=== PATIENT | male | born 1930 | race Caucasian/White ===

== ENCOUNTER 2019-12-04 12:23 | Inpatient (IN) | payer MEDICARE ==
--- NOTE | 2019-12-04 13:06 | ED ---
General Adult HPI - General Chief complaint: Shortness of Breath Stated complaint: SOB Time Seen by Provider: 12/04/19 12:45 Source: patient, family, RN notes reviewed Mode of arrival: wheelchair Limitations: no limitations - History of Present Illness Initial comments: Patient is a pleasant 89-year-old male presenting to the emergency Department with complaints of shortness of breath. Onset of symptoms was 2 days ago. Patient started with nausea vomiting and diarrhea 2 days ago, approximate 5 or 6 episodes of each. Patient has been having source of breath since that time, somewhat waxing and waning. Patient originally denies any chest discomfort at all. Patient later admits that he did have some indigestion in his chest most the day yesterday. Patient denies any discomfort at all today. Patient still feels somewhat short of breath. Patient has been fatigued and generally weak. No isolated area of weakness or confusion. Nausea has resolved. - Related Data Allergies Allergy/AdvReac Type Severity Reaction Status Date / Time No Known Allergies Allergy Verified 12/04/19 12:31 Review of Systems ROS Statement: Those systems with pertinent positive or pertinent negative responses have been documented in the HPI. ROS Other: All systems not noted in ROS Statement are negative. Constitutional: Denies: fever Eyes: Denies: eye pain ENT: Denies: ear pain Respiratory: Reports: cough (Minimal cough), dyspnea Cardiovascular: Reports: as per HPI Endocrine: Reports: fatigue Gastrointestinal: Reports: as per HPI. Denies: abdominal pain Genitourinary: Denies: dysuria Musculoskeletal: Denies: back pain Skin: Denies: rash Neurological: Reports: as per HPI. Denies: headache, confusion Past Medical History Past Medical History: Diabetes Mellitus, Hyperlipidemia History of Any Multi-Drug Resistant Organisms: None Reported Past Surgical History: No Surgical Hx Reported Past Psychological History: No Psychological Hx Reported Smoking Status: Never smoker Past Alcohol Use History: None Reported Past Drug Use History: None Reported General Exam Limitations: no limitations General appearance: alert, in no apparent distress Head exam: Present: normocephalic Eye exam: Present: normal appearance Neck exam: Present: normal inspection Respiratory exam: Present: respiratory distress, decreased breath sounds (Mild bilateral) Cardiovascular Exam: Present: regular rate, normal rhythm Expanded Peripheral pulses: 2+: Radial (R), Radial (L), Posterior Tibialis (R), Posterior Tibialis (L), Dorsalis Pedis (R), Dorsalis Pedis (L) GI/Abdominal exam: Present: soft. Absent: tenderness Extremities exam: Present: normal inspection. Absent: pedal edema, calf tenderness Neurological exam: Present: alert Psychiatric exam: Present: normal affect, normal mood Skin exam: Present: normal color Course Vital Signs 12/04/19 12/04/19 12/04/19 12:25 13:05 13:30 Temperature 97.5 F L Pulse Rate 66 62 65 Respiratory 20 18 18 Rate Blood Pressure 109/54 114/74 105/92 O2 Sat by Pulse 95 94 L 97 Oximetry - Reevaluation(s) Reevaluation #1: 12/04/19 13:[address] Stubbs including presentation and EKG. He is in the hospital and will come evaluate. EKG #2 shows sinus rhythm at 61. First-degree AV block NH 2:30. QRS 76. QT 412. QTC 414. Normal axis. Low risk voltage. Inferior ST elevation. ST depression V1 through V4. 12/04/19 13:29 Patient was seen by Dr. Stubbs with plans to take her to the Ultrasound Coordinator. He did call STEMI alert. 12/04/19 13:35 case also discussed with Dr. Duggan, who will admit covered for Dr. garsia. EKG Findings - EKG Comments: EKG Findings:: Sinus rhythm 62. For screening AV block with NH of 256. QRS 78. QT 408. QTC 414. Normal axis. Low QRS voltage. ST elevation inferior. ST depression leads V1 through V4. Medical Decision Making - Lab Data Result diagrams: 12/04/19 13:07 Lab Results 12/04/19 12/04/19 Range/Units 13:07 13:07 WBC 22.8 H (3.8-10.6) k/uL RBC 5.11 (4.30-5.90) m/uL Hgb 17.0 (13.0-17.5) gm/dL Hct 52.7 (39.0-53.0) % MCV 103.1 H (80.0-100.0) fL MCH 33.2 (25.0-35.0) pg MCHC 32.3 (31.0-37.0) g/dL RDW 13.0 (11.5-15.5) % Plt Count 226 (150-450) k/uL Neutrophils % 85 % Lymphocytes % 6 % Monocytes % 8 % Eosinophils % 0 % Basophils % 0 % Neutrophils # 19.4 H (1.3-7.7) k/uL Lymphocytes # 1.4 (1.0-4.8) k/uL Monocytes # 1.8 H (0-1.0) k/uL Eosinophils # 0.1 (0-0.7) k/uL Basophils # 0.0 (0-0.2) k/uL Hypochromasia Slight Macrocytosis Slight Plasma Lactic Acid Brett 11.5 H* (0.7-2.0) mmol/L - Radiology Data Radiology results: image reviewed (Chest x-ray concerning for CHF) Critical Care Time Critical Care Time: Yes Total Critical Care Time: 31 Disposition Clinical Impression: Congestive heart failure, STEMI (ST elevation myocardial infarction) Disposition: ADMITTED IP TO THIS [facility] Condition: Critical Is patient prescribed a controlled substance at d/c from ED?: No Referrals: Dipika Silverman MD [Primary Care Provider] - 1-2 days Decision Time: 13:35
[2019-12-04] MEDS ORDERED: ASPIRIN 81 MG PO STA (13:10)
[2019-12-04 13:15] LABS: Basophils % (A) 0 %; Eosinophils # (A) 0.1 k/uL (0-0.7); Eosinophils % (A) 0 %; HCT 52.7 % (39.0-53.0); Hypochromasia Slight; Lymphocytes # (A) 1.4 k/uL (1.0-4.8); Lymphocytes % (A) 6 %; MCH 33.2 pg (25.0-35.0); MCHC 32.3 g/dL (31.0-37.0); MCV 103.1 fL (80.0-100.0); Macrocytosis Slight; Mean Platelet Volume 9.1; Monocytes # (A) 1.8 k/uL (0-1.0); Monocytes % (A) 8 %; Neutrophils # (A) 19.4 k/uL (1.3-7.7); Neutrophils % (A) 85 %; Platelet Count 226 k/uL (150-450); RBC 5.11 m/uL (4.30-5.90); WBC 22.8 k/uL (3.8-10.6)
[2019-12-04] MEDS ORDERED: HEPARIN SODIUM,PORCINE 5,000 UNIT/ML 1 ML VIAL IV STA (13:20)
[2019-12-04] MEDS ORDERED: ATORVASTATIN 80 MG TAB PO STA (13:20)
[2019-12-04 13:23] LABS: Albumin 4.5 g/dL (3.5-5.0); Calcium 9.9 mg/dL (8.4-10.2); Total Bilirubin 2.3 mg/dL (0.2-1.3); Total Protein 7.5 g/dL (6.3-8.2)
[2019-12-04 13:33] LABS: INR 1.1 (<1.2); Prothrombin Time 11.3 sec (9.0-12.0)
--- NOTE | 2019-12-04 13:33 | XR ---
EXAMINATION TYPE: XR chest 1V portable DATE OF EXAM: 12/04/2019 HISTORY: Dyspnea. REFERENCE: NONE. FINDINGS: Heart size upper limits of normal. There is mild vascular congestion and pulmonary edema. I cannot exclude small effusions. IMPRESSION: FINDINGS MOST CONSISTENT WITH CONGESTIVE HEART FAILURE.
[2019-12-04] MEDS ORDERED: HEPARIN SODIUM,PORCINE 5,000 UNIT/ML 1 ML VIAL IV PRN (13:35)
[2019-12-04] MEDS ORDERED: NITROGLYCERIN SL TABS 0.4 MG TAB SUBLINGUAL PRN ×2 (13:35→15:14)
[2019-12-04 13:36] LABS: D-Dimer 0.86 mg/L FEU (<0.60)
[2019-12-04] MEDS ORDERED: LIDOCAINE 1% INJ 10MG/ML (20 ML MDV) ONE (13:54)
[2019-12-04] MEDS ORDERED: SODIUM CHLORIDE 0.9% 1,000 ML IV ONE (14:00)
[2019-12-04] MEDS ORDERED: HEPARIN SOD,PORK IN 0.45% NACL 25,000 UNIT in 0.45% NACL 1 250ML.BAG IV SCH (14:00)
[2019-12-04] MEDS ORDERED: SODIUM CHLORIDE 0.9% 500 ML 500 ML IV ONE ×2 (14:00→15:08)
[2019-12-04] MEDS ORDERED: LIDOCAINE 1% INJ 10MG/ML (20 ML MDV) SQ ONE (14:06)
[2019-12-04] MEDS ORDERED: BIVALIRUDIN BOLUS 250 MG/50 ML IV ONE (14:30)
[2019-12-04] MEDS ORDERED: FUROSEMIDE 10 MG/ML 4 ML VIAL ONE (14:31)
[2019-12-04] MEDS ORDERED: CLOPIDOGREL 75 MG TAB ONE (14:34)
[2019-12-04] MEDS ORDERED: MORPHINE SULFATE 4 MG/ML SYRINGE ONE (14:34)
[2019-12-04] MEDS ORDERED: MORPHINE SULFATE 4 MG/ML SYRINGE IV ONE (14:37)
[2019-12-04] MEDS ORDERED: BIVALIRUDIN 250 MG in SODIUM CHLORIDE 0.9% 50 ML IV ONE (14:38)
[2019-12-04] MEDS ORDERED: niCARdipine 25 MG/10 ML VIAL ONE (14:40)
[2019-12-04] MEDS ORDERED: CLOPIDOGREL 75 MG TAB PO ONE (14:43)
[2019-12-04] MEDS ORDERED: FUROSEMIDE 10 MG/ML 4 ML VIAL IV ONE (14:45)
--- NOTE | 2019-12-04 14:52 | P.CRDCN ---
History of Present Illness History of present illness: This is Dr. Stubbs dictating a consult on this patient The patient was interviewed and examined IMPRESSION / ASSESSMENT: Acute inferior posterior SD ST elevation, symptoms began evening presented with nausea vomiting and diarrhea initially 2 days of symptoms Recently diagnosed with diabetes History of dyslipidemia PLAN: Discussed with the patient discussed with the daughter Risk of cardio catheterization at this age with a large inferior posterior SD discussed in addition stroke was discussed Likely triple-vessel coronary artery disease, intervention only on the culprit vessel as indicated HPI Called by Dr. Jarrett for this elderly gentleman presenting with upper abdominal symptoms with an ST elevation in the inferior leads [place] [address]. when I received a call and went down to the ER to see the patient 1 his twelve-lead ECG showed sinus mechanism in the 60s with ST elevation in the inferior posterior leads he seemed fairly comfortable at rest. He categorically denied any chest discomfort any nausea and I saw him However his daughter stated that she brought him in today and ultimately forced him to come in because she found him a short of breath Patient started experiencing nausea and diarrhea on . On Friday he was feeling short of breath. His daughter literally forced to come to the hospital today because she found him short of breath I saw him in the ER he did not complain of any discomfort in the chest However the daughter told me that on Friday he was complaining of midsternal chest discomfort going up into the jaw and the neck No labs available initially He said he was recently started on metformin by his primary care physician Blood pressure was in the normal range pulse rate in the 60s afebrile respirations 16-18 he did not appear to be any respiratory distress I called Dr. Chong at 1:12 PM regarding this patient STEMI alert at 1:18 PM, Dr. Chong notified of activation of STEMI team Twelve-lead ECG showed ST elevation in the inferior leads and ST depression in V1 and V2 and V3 consistent with a large inferior posterior SD Later, labs showed sodium 132 potassium 5.0 creatinine 2.54, glucose 602 lactic acid 11.5 CPK greater than 4000 Troponin 122 NT proBNP 12,700 White count elevated ROS: No fever chills or rigors, no cough, phlegm or expectoration, no nausea, vomiting or diarrhea, no hematuria, dysuria, no musculoskeletal complaints, no strokes or seizures, no skin lesions. EXAMINATION: Afebrile and 7.5, pulse rate in the 60s, blood pressure 109/54 oxygen saturation 95% on room air Best sounds but reduced bilaterally but no rhonchi no crackles Does not appear visibly short of breath, not using accessory muscles Heart sounds S1 and S2 are normal no murmurs no rub Abdomen soft Extremity warm REVIEW OF LABS, ECG & MEDICAL DATA Labs as above Past Medical History Past Medical History: Diabetes Mellitus, Hyperlipidemia History of Any Multi-Drug Resistant Organisms: None Reported Past Surgical History: No Surgical Hx Reported Past Psychological History: No Psychological Hx Reported Smoking Status: Never smoker Past Alcohol Use History: None Reported Past Drug Use History: None Reported Medications and Allergies Home Medications Medication Instructions Recorded Confirmed Type Simvastatin [Zocor] 20 mg PO HS 12/04/19 12/04/19 History metFORMIN HCL [Glucophage] 500 mg PO DAILY 12/04/19 12/04/19 History Allergies Allergy/AdvReac Type Severity Reaction Status Date / Time No Known Allergies Allergy Verified 12/04/19 13:38 Physical Exam Vitals: Vital Signs Temp Pulse Resp BP Pulse Ox 12/04/19 13:40 61 20 120/92 92 L 12/04/19 13:30 65 18 105/92 97 12/04/19 13:05 62 18 114/74 94 L 12/04/19 12:25 97.5 F L 66 20 109/54 95 Intake and Output 12/03/19 12/04/19 12/04/19 22:59 06:59 14:59 Other: Weight 74.843 kg Results 12/04/19 13:07 12/04/19 13:07 Cardiac Enzymes 12/04/19 12/04/19 Range/Units 13:07 13:07 AST 742 H (17-59) U/L Troponin I 122.000 H* (0.000-0.034) ng/mL Coagulation 12/04/19 Range/Units 13:07 PT 11.3 (9.0-12.0) sec APTT 24.0 (22.0-30.0) sec CBC 12/04/19 Range/Units 13:07 WBC 22.8 H (3.8-10.6) k/uL RBC 5.11 (4.30-5.90) m/uL Hgb 17.0 (13.0-17.5) gm/dL Hct 52.7 (39.0-53.0) % Plt Count 226 (150-450) k/uL Comprehensive Metabolic Panel 12/04/19 Range/Units 13:07 Sodium 132 L (137-145) mmol/L Potassium 5.0 (3.5-5.1) mmol/L Chloride 92 L (98-107) mmol/L Carbon Dioxide 18 L (22-30) mmol/L BUN 53 H (9-20) mg/dL Creatinine 2.54 H (0.66-1.25) mg/dL Glucose 602 H* (74-99) mg/dL Calcium 9.9 (8.4-10.2) mg/dL AST 742 H (17-59) U/L ALT 83 H (4-49) U/L Alkaline Phosphatase 90 (38-126) U/L Total Protein 7.5 (6.3-8.2) g/dL Albumin 4.5 (3.5-5.0) g/dL Current Medications Generic Name Dose Route Start Last Admin Trade Name Freq PRN Reason Stop Dose Admin Aspirin 325 mg 12/05/19 09:00 Aspirin PO DAILY [facility] Heparin Sodium (Porcine) 0 unit 12/04/19 13:35 Heparin IV Q6HR PRN Low PTT Protocol Heparin Sodium/Sodium Chloride 250 mls @ 8.981 mls/hr 12/04/19 14:00 25,000 unit/ Sodium Chloride IV .Q24H [facility] Protocol 12 UNITS/KG/HR Nitroglycerin 0.4 mg 12/04/19 13:35 Nitrostat SUBLINGUAL Q5M PRN Chest Pain Sodium Chloride 10 ml 12/04/19 21:00 Saline Flush IV BID [facility] Intake and Output 12/03/19 12/04/19 12/04/19 22:59 06:59 14:59 Other: Weight 74.843 kg Patient Weight 12/05/19 06:59 Weight 74.843 kg 12/04/19 13:07 12/04/19 13:07
[2019-12-04] MEDS ORDERED: NITROGLYCERIN 1000MCG/10ML SYRINGE INTRACORON ONE (15:02)
[2019-12-04] MEDS ORDERED: niCARdipine Syringe (1,000 mcg/10 mL) INTRACORON ONE (15:02)
[2019-12-04] MEDS ORDERED: RX INFO: IV CONTRAST WAS GIVEN 1 EACH MISC MISCELLANE PRN (15:14)
[2019-12-04] MEDS ORDERED: ATROPINE SULFATE 0.1 MG/ML 10ML SYRINGE IV PRN (15:14)
[2019-12-04] MEDS ORDERED: ZOLPIDEM 5 MG TAB PO PRN (15:14)
[2019-12-04] MEDS ORDERED: MAG HYDROX/AL HYDROX/SIMETH 30 ML CUP PO PRN (15:14)
[2019-12-04] MEDS ORDERED: SODIUM CHLORIDE 0.9% 1,000 ML IV SCH (15:15)
[2019-12-04 15:41] LABS: Glucose,Whole Blood 499 mg/dL (75-99)
[2019-12-04 16:37] LABS: Appearance,Urine Cloudy (Clear); Bilirubin,Urine Negative (Negative); Blood,Urine Negative (Negative); Color,Urine Yellow; Glucose,Urine (UA) 4+ (Negative); Hyaline Casts,Urine 85 /lpf (0-2); Ketones,Urine 1+ (Negative); Leukocyte Esterase,Urine Negative (Negative); Mucus,Urine Rare /hpf; Nitrite,Urine Negative (Negative); Protein,Urine Trace (Negative); RBC,Urine 1 /hpf (0-5); Specific Gravity,Urine 1.023 (1.001-1.035); Squamous Epithelial Cell,Urine 1 /hpf (0-4); Urobilinogen,Urine <2.0 mg/dL (<2.0); WBC,Urine 3 /hpf (0-5)
[2019-12-04] MEDS: METOPROLOL TARTRATE 12.5 MG TAB PO SCH ×2 (17:19→22:01)
[2019-12-04] MEDS ORDERED: INSULIN REGULAR BOLUS (FROM DRIP BAG) IV PRN (17:23)
[2019-12-04] MEDS ORDERED: INSULIN REGULAR 100 UNIT in SODIUM CHLORIDE 0.9% 100 ML IV SCH (17:30)
--- NOTE | 2019-12-04 17:53 | CC ---
CARDIAC CATHETERIZATION REPORT DATE OF SERVICE: 12/04/2019 PERFORMING PHYSICIAN: Stephen Acevedo MD. PROCEDURE PERFORMED: 1. Selective right and left coronary angiogram. 2. Left heart catheterization. 3. Balloon angioplasty of the first obtuse marginal branch of the left circumflex. 4. Balloon angioplasty of the PDA branch of the left circumflex. 5. Aspiration thrombectomy from the left circumflex. INDICATION: This is an 89-year-old gentleman with diabetes who presented to the hospital with chest discomfort. An EKG was performed and revealed acute inferior ST-elevation myocardial infarction. The patient was seen by Dr. Stubbs who advised proceeding with an emergent heart catheterization and possible percutaneous coronary intervention. APPROACH: Right common femoral artery. COMPLICATION: None. LEVEL OF SEDATION: Moderate with sedation length of 1 hour. Door to balloon was 2 hours and 10 minutes. Please note that when the patient arrived to the packing house laborer and getting ready to proceed with a heart catheterization it already passed 90 minutes. AMOUNT OF CONTRAST USED: We used a total of 50 mL of IV contrast. PROCEDURE DESCRIPTION: After obtaining informed consent, the patient was brought to the cardiac packing house laborer. The right common femoral artery was cannulated using micropuncture technique, the micropuncture wire passed easily then I placed a 6-Welsh sheath at the right common femoral artery. After that I did selective right and left coronary angiogram using JR4 and JL4 catheters. Left heart catheterization was performed using JR4 catheter which crossed the aortic valve then I did pullback across the valve. After that I did intervene on the left circumflex coronary artery. Please see a separate paragraph for that. SELECTIVE CORONARY ANGIOGRAM: 1. The right coronary artery is a large caliber vessel. The RCA is 100% occluded in the proximal to midportion. 2. The left main is calcified with mild disease only. It bifurcates into LCX and LAD. 3. The LCX is a large caliber vessel and codominant vessel. The LCA is extremely calcified and occluded right at the ostium from the left main coronary artery. 4. The LAD is extremely calcified as well. The proximal LAD appeared to have a focal tight lesion, appeared to be in the range of 90%. Then the mid LAD has another lesion appeared to be ulcerated in the range of 80% to 90%. as well. The LAD distally appeared to have mild disease only. HEMODYNAMICS: The LVEDP was 24 mmHg without significant gradient across the aortic valve. PCI OF THE LEFT CIRCUMFLEX: Anticoagulation was initiated using Angiomax. Subsequently,I did engage the left main using JL4 guiding catheter. I did wire the left circumflex and the wire after that advanced to the first obtuse marginal branch of the left circumflex and that wire was a whisper wire. After that I did PTCA ballooning of the OM1 as well as proximal left circumflex using 2 0 mm balloon and then 3 0 mm balloon. Also, there was a lesion in the midportion right at the ostial of OM1 from the left circumflex which the balloon did not cross but I was able to balloon it using 1.5 mm balloon. An angiogram was taken right after the ballooning and revealed that the left circumflex was full of thrombus. Attempting aspiration thrombectomy was performed as well and we were unable to aspirate any clot from the left circumflex. Also, by the angiogram we noticed that there is a big PDA branch of the left circumflex coming so I left the wire in OM1 and I wired the PDA branch of the left circumflex. I did balloon angioplasty of the PDA as well using 2.0 x 12 mm balloon. The following angiogram showed sluggish flow in both the PDA as well as the OM of the left circumflex. Because the patient was asymptomatic at the end of the procedure and because of the maximum amount of contrast we used and we were not quite sure if the inferolateral wall of the left circumflex was viable, we decided to stop. Also, the left circumflex was full of clot and a clot involving both the OM1 as well as PDA of the left circumflex. CONCLUSION: 1. Acute inferior ST-elevation myocardial infarction in this 89-year-old gentleman with underlying diabetes. 2. Extremely calcified right and left coronary systems. 3. Severe triple-vessel coronary artery disease. 4. 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 5. Subacute total occlusion of the left circumflex with a large thrombus burden involving the OM as well as PDA of the left circumflex. 6. Critical disease involving the proximal and mid left anterior descending artery. 7. Balloon angioplasty of the left circumflex, OM1, and PDA performed with sluggish flow by the end and the balloon angioplasty was performed with adjunctive use of aspiration thrombectomy. 8. Please note that the time the patient arrived at the packing house laborer to start the heart catheterization it already passed 90 minutes. POSTPROCEDURE MANAGEMENT: 1. Dual anti-platelet therapy. 2. Aggressive cholesterol control. 3. Hold any beta live at this point in view of the bradycardia and first-degree AV block. 4. High-intensity statin. 5. An echocardiogram with Doppler. MMODL / IJN: [id number] /
[2019-12-04 18:06] LABS: Glucose,Whole Blood 499 mg/dL (75-99)
[2019-12-04 18:30] LABS: Glucose,Whole Blood 501 mg/dL (75-99)
[2019-12-04 19:08] LABS: Glucose,Whole Blood 446 mg/dL (75-99)
[2019-12-04 21:41] LABS: Glucose,Whole Blood 289 mg/dL (75-99)
[2019-12-04] MEDS: ATORVASTATIN 80 MG TAB PO SCH (22:01)
[2019-12-04 22:45] LABS: Glucose,Whole Blood 240 mg/dL (75-99)
[2019-12-04 23:43] LABS: Glucose,Whole Blood 186 mg/dL (75-99)
[2019-12-05 01:02] LABS: Glucose,Whole Blood 148 mg/dL (75-99)
[2019-12-05 01:47] LABS: Glucose,Whole Blood 133 mg/dL (75-99)
[2019-12-05 02:52] LABS: Glucose,Whole Blood 113 mg/dL (75-99)
[2019-12-05 03:54] LABS: Glucose,Whole Blood 135 mg/dL (75-99)
[2019-12-05 04:53] LABS: Glucose,Whole Blood 130 mg/dL (75-99)
[2019-12-05 05:50] LABS: Basophils # (A) 0.1 k/uL (0-0.2); Basophils % (A) 0 %; Eosinophils % (A) 0 %; HCT 49.6 % (39.0-53.0); HGB 16.5 gm/dL (13.0-17.5); Lymphocytes # (A) 1.4 k/uL (1.0-4.8); Lymphocytes % (A) 6 %; MCH 33.5 pg (25.0-35.0); MCHC 33.3 g/dL (31.0-37.0); MCV 100.4 fL (80.0-100.0); Mean Platelet Volume 8.7; Monocytes # (A) 1.5 k/uL (0-1.0); Monocytes % (A) 7 %; Neutrophils # (A) 19.4 k/uL (1.3-7.7); Neutrophils % (A) 86 %; Platelet Count 142 k/uL (150-450); RBC 4.94 m/uL (4.30-5.90); RDW 13.1 % (11.5-15.5); WBC 22.6 k/uL (3.8-10.6)
[2019-12-05 05:50] LABS: Glucose,Whole Blood 131 mg/dL (75-99)
[2019-12-05 05:57] LABS: Albumin 3.9 g/dL (3.5-5.0); Calcium 9.4 mg/dL (8.4-10.2); Potassium 4.5 mmol/L (3.5-5.1); Total Protein 6.9 g/dL (6.3-8.2)
[2019-12-05 07:00] LABS: Glucose,Whole Blood 123 mg/dL (75-99)
--- NOTE | 2019-12-05 07:04 | XR ---
EXAMINATION TYPE: XR chest 1V portable DATE OF EXAM: 12/05/2019 HISTORY: CHF. REFERENCE: Previous study dated 12/04/2019. FINDINGS: Pulmonary vasculature has improved. There is worsening bibasilar airspace disease. The hear t is mildly enlarged. I suspect small effusions. IMPRESSION: 1. IMPROVEMENT IN THE AMOUNT OF PULMONARY CONGESTION. 2. WORSENING BIBASILAR AIRSPACE DISEASE WITH SMALL CONCOMITANT EFFUSIONS.
[2019-12-05 08:21] LABS: Glucose,Whole Blood 124 mg/dL (75-99)
[2019-12-05] MEDS: CLOPIDOGREL 75 MG TAB PO SCH (08:35)
[2019-12-05] MEDS: METOPROLOL TARTRATE 12.5 MG TAB PO SCH ×2 (08:36→20:39)
[2019-12-05] MEDS: ENOXAPARIN 30 MG/0.3 ML SYRINGE SQ SCH (08:36)
[2019-12-05] MEDS: PANTOPRAZOLE 40 MG TABLET PO SCH (08:37)
[2019-12-05] MEDS ORDERED: ASPIRIN 325 MG TAB PO SCH ×2 (09:00)
[2019-12-05] MEDS ORDERED: FUROSEMIDE 10 MG/ML 4 ML VIAL IV STA (09:21)
[2019-12-05 09:23] LABS: Glucose,Whole Blood 110 mg/dL (75-99)
[2019-12-05 09:55] LABS: Glucose,Whole Blood 146 mg/dL (75-99)
[2019-12-05 11:53] LABS: Glucose,Whole Blood 208 mg/dL (75-99)
[2019-12-05] MEDS: INSULIN ASPART (NovoLOG) 100 UNIT/ML VIAL SQ SCH ×3 (12:26→20:46)
--- NOTE | 2019-12-05 13:32 | P.CNPUL ---
History of Present Illness Consult date: 12/05/19 Requesting physician: Priscilla Duggan Reason for consult: obstructive sleep apnea, other (Acute inferior wall myocardial infarction status post angioplasty.) Chief complaint: Shortness of breath History of present illness: This is an 89-year-old white male brought into the emergency room yesterday with 2 days history of shortness of breath, nausea vomiting, diarrhea. Patient was also complaining of waxing and waning shortness of breath but he had no clear- cut history of chest discomfort. But admitted to some indigestion in the chest yesterday. He also felt weak and fatigued. EKG in the ER showed evidence of inferior ST elevation and ST depression in V1 through V4. Patient was seen by c ardiology and he was felt to have acute ST elevation myocardial infarction. Patient was recently diagnosed with diabetes and history of dyslipidemia. According to his daughter, patient did complain of midsternal chest discomfort going up to the jaw and the neck area on Friday. At any rate ST elevation myocardial infarction alert was called in at 1:18 PM, and Dr. Chong was notified, STEMI team was activated. Cardiac catheterization was performed and he underwent balloon angioplasty of the first obtuse marginal branch of the left circumflex balloon angioplasty of the PDA branch of the left circumflex and aspiration thrombectomy from the left circumflex. 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 There was also critical disease involving the proximal and mid LAD. Patient was transferred to the ICU, he was placed on dual antiplatelet therapy, and recommended high-intensity stat his chest x-ray on admission clearly showed evidence of pulmonary edema, chest x-ray today showed improvement in his pulmonary edema but not completely resolved. Patient has been on 10 L high flow nasal cannula, and he is down to 6 now O2 saturations 96%. After evaluating the patient, I recommended more diuretics. He was given Lasix 40 mg IV push 1. BNP level was noted to be elevated at 11,000. Pro-calcitonin level is pending. And his liver enzymes were noted to be elevated including AST of 780 ALT of 106 and alkaline phosphatase of 69. CPK on admission was over 4006 and a troponin over 180,000. Review of Systems Constitutional: Weakness and fatigue HEENT: Negative Pulmonary: As noted in HPI. Cardiac: As noted in HPI. GI: Nausea vomiting and diarrhea. Musculoskeletal: Negative Skin: Negative Urologic: Negative Endocrine: Recently diagnosed with diabetes and started on metformin. Neurologic: Negative Hematologic: Negative Psychiatric: Negative Past Medical History Past Medical History: Diabetes Mellitus, Hyperlipidemia, Myocardial Infarction (DC) Last Myocardial Infarction Date:: 12/04/2019 History of Any Multi-Drug Resistant Organisms: None Reported Past Surgical History: Heart Catheterization Additional Past Surgical History / Comment(s): 12/04/19 - Circ ballooned Smoking Status: Never smoker Medications and Allergies Home Medications Medication Instructions Recorded Confirmed Type Simvastatin [Zocor] 20 mg PO HS 12/04/19 12/04/19 History metFORMIN HCL [Glucophage] 500 mg PO DAILY 12/04/19 12/04/19 History Allergies Allergy/AdvReac Type Severity Reaction Status Date / Time No Known Allergies Allergy Verified 12/04/19 13:38 Physical Exam Vitals: Vital Signs Temp Pulse Resp BP Pulse Ox 12/05/19 12:00 98.5 F 101 H 25 H 83/56 93 L 12/05/19 11:00 104 H 28 H 81/56 92 L 12/05/19 10:00 93 28 H 89/62 91 L 12/05/19 09:00 99 23 100/73 12/05/19 08:00 97.5 F L 108 H 25 H 102/75 94 L 12/05/19 07:00 111 H 20 107/76 96 12/05/19 06:00 106 H 16 98/72 95 12/05/19 05:00 107 H 14 108/77 97 12/05/19 04:00 97.6 F 110 H 18 115/77 97 12/05/19 03:00 101 H 20 108/75 95 12/05/19 02:00 104 H 20 115/79 94 L 12/05/19 01:00 101 H 18 124/83 96 12/05/19 00:00 97.6 F 99 20 112/81 95 12/04/19 23:00 97 16 114/78 96 12/04/19 22:00 100 18 112/84 95 12/04/19 21:00 101 H 18 112/80 96 12/04/19 20:00 97.6 F 88 20 111/79 96 12/04/19 19:00 100 22 107/79 94 L 12/04/19 18:30 112 H 28 H 116/83 95 12/04/19 18:15 114 H 27 H 118/82 94 L 12/04/19 18:00 110 H 30 H 122/79 94 L 12/04/19 17:45 114 H 30 H 134/102 94 L 12/04/19 17:30 112 H 29 H 125/82 94 L 12/04/19 17:15 112 H 30 H 125/82 95 12/04/19 17:00 113 H 32 H 111/76 95 12/04/19 16:45 104 H 24 111/76 93 L 12/04/19 16:30 116 H 0 L 106/82 93 L 12/04/19 16:05 92 L 12/04/19 16:00 97.6 F 117 H 22 131/92 87 L 12/04/19 13:40 61 20 120/92 92 L 12/04/19 13:30 65 18 105/92 97 Intake and Output 12/04/19 12/05/19 12/05/19 22:59 06:59 14:59 Intake Total 639.876 627.649 203.475 Output Total 450 370 205 Balance 189.876 257.649 -1.525 Intake: IV 50 Intake, IV Titration 589.876 627.649 203.475 Amount Insulin Regular 100 unit 64.876 27.649 8.475 In Sodium Chloride 0.9% 100 ml @ Per Protocol IV .Q0M [facility] Rx#:[id number] Sodium Chloride 0.9% 1, 525 600 195 000 ml @ 75 mls/hr IV . [id number] [facility] Rx#:[id number] Output: Urine 450 370 205 Other: Voiding Method Indwelling Catheter Indwelling Catheter Indwelling Catheter Weight 74.843 kg 76.9 kg 76.9 kg Physical Exam: Revealed an 89-year-old white male in no distress. Head: Atraumatic, normocephalic. HEENT:[Neck is supple.] [No neck masses.] [No thyromegaly.] [No JVD.] PERRLA, EOMI, no icterus. Chest: [Symmetrical chest expansion, crackles at the bases especially at the right base. No chest wall tenderness. No rhonchi no wheezes.] Cardiac Exam: [Normal S1 and S2, no S3 gallop, no murmur.] Abdomen: [Soft, nontender, no megaly, no rebound, no guarding, normal bowel sounds.] Extremities: [No clubbing, no edema, no cyanosis.] Neurological Exam: [No focal neurologic deficit.] Alert and oriented 3. Psychiatric: Normal mood affect and normal mental status examination. Skin: No rashes. Results - Laboratory Findings CBC and BMP: 12/05/19 05:19 12/05/19 05:19 PT/INR, D-dimer PT 11.3 sec (9.0-12.0) 12/04/19 13:07 INR 1.1 (<1.2) 12/04/19 13:07 D-Dimer 0.86 mg/L FEU (<0.60) H 12/04/19 13:07 Abnormal lab findings: Abnormal Labs 12/04/19 12/04/19 12/04/19 13:07 13:07 13:07 WBC 22.8 H MCV 103.1 H Plt Count Neutrophils # 19.4 H Monocytes # 1.8 H D-Dimer 0.86 H Sodium 132 L Chloride 92 L Carbon Dioxide 18 L BUN 53 H Creatinine 2.54 H Glucose 602 H* POC Glucose (mg/dL) Plasma Lactic Acid Brett Total Bilirubin 2.3 H AST 742 H ALT 83 H Creatine Kinase 4375 H* Troponin I Urine Protein Urine Glucose (UA) Urine Ketones Hyaline Casts Urine Mucus 12/04/19 12/04/19 12/04/19 13:07 13:07 15:39 WBC MCV Plt Count Neutrophils # Monocytes # D-Dimer Sodium Chloride Carbon Dioxide BUN Creatinine Glucose POC Glucose (mg/dL) 499 H Plasma Lactic Acid Brett 11.5 H* Total Bilirubin AST ALT Creatine Kinase Troponin I 122.000 H* Urine Protein Urine Glucose (UA) Urine Ketones Hyaline Casts Urine Mucus 12/04/19 12/04/19 12/04/19 16:07 16:07 16:20 WBC MCV Plt Count Neutrophils # Monocytes # D-Dimer Sodium Chloride Carbon Dioxide BUN Creatinine Glucose POC Glucose (mg/dL) Plasma Lactic Acid Brett 8.2 H* Total Bilirubin AST ALT Creatine Kinase Troponin I 149.000 H* Urine Protein Trace H Urine Glucose (UA) 4+ H Urine Ketones 1+ H Hyaline Casts 85 H Urine Mucus Rare H 12/04/19 12/04/19 12/04/19 18:05 18:29 19:06 WBC MCV Plt Count Neutrophils # Monocytes # D-Dimer Sodium Chloride Carbon Dioxide BUN Creatinine Glucose POC Glucose (mg/dL) 499 H 501 H 446 H Plasma Lactic Acid Brett Total Bilirubin AST ALT Creatine Kinase Troponin I Urine Protein Urine Glucose (UA) Urine Ketones Hyaline Casts Urine Mucus 12/04/19 12/04/19 12/04/19 19:49 19:49 21:38 WBC MCV Plt Count Neutrophils # Monocytes # D-Dimer Sodium Chloride Carbon Dioxide BUN Creatinine Glucose POC Glucose (mg/dL) 289 H Plasma Lactic Acid Brett 6.2 H* Total Bilirubin AST ALT Creatine Kinase Troponin I 180.000 H* Urine Protein Urine Glucose (UA) Urine Ketones Hyaline Casts Urine Mucus 12/04/19 12/04/19 12/04/19 22:43 23:10 23:40 WBC MCV Plt Count Neutrophils # Monocytes # D-Dimer Sodium Chloride Carbon Dioxide BUN Creatinine Glucose POC Glucose (mg/dL) 240 H 186 H Plasma Lactic Acid Brett 5.6 H* Total Bilirubin AST ALT Creatine Kinase Troponin I Urine Protein Urine Glucose (UA) Urine Ketones Hyaline Casts Urine Mucus 12/05/19 12/05/19 12/05/19 01:00 01:45 02:35 WBC MCV Plt Count Neutrophils # Monocytes # D-Dimer Sodium Chloride Carbon Dioxide BUN Creatinine Glucose POC Glucose (mg/dL) 148 H 133 H Plasma Lactic Acid Brett 4.5 H* Total Bilirubin AST ALT Creatine Kinase Troponin I Urine Protein Urine Glucose (UA) Urine Ketones Hyaline Casts Urine Mucus 12/05/19 12/05/19 12/05/19 02:50 03:48 04:52 WBC MCV Plt Count Neutrophils # Monocytes # D-Dimer Sodium Chloride Carbon Dioxide BUN Creatinine Glucose POC Glucose (mg/dL) 113 H 135 H 130 H Plasma Lactic Acid Brett Total Bilirubin AST ALT Creatine Kinase Troponin I Urine Protein Urine Glucose (UA) Urine Ketones Hyaline Casts Urine Mucus 12/05/19 12/05/19 12/05/19 05:19 05:19 05:19 WBC 22.6 H MCV 100.4 H Plt Count 142 L Neutrophils # 19.4 H Monocytes # 1.5 H D-Dimer Sodium Chloride Carbon Dioxide BUN 65 H Creatinine 1.73 H Glucose 143 H POC Glucose (mg/dL) Plasma Lactic Acid Brett 4.1 H* Total Bilirubin 2.0 H AST 780 H ALT 106 H Creatine Kinase Troponin I Urine Protein Urine Glucose (UA) Urine Ketones Hyaline Casts Urine Mucus 12/05/19 12/05/19 12/05/19 05:47 06:57 08:11 WBC MCV Plt Count Neutrophils # Monocytes # D-Dimer Sodium Chloride Carbon Dioxide BUN Creatinine Glucose POC Glucose (mg/dL) 131 H 123 H Plasma Lactic Acid Brett 2.5 H* Total Bilirubin AST ALT Creatine Kinase Troponin I Urine Protein Urine Glucose (UA) Urine Ketones Hyaline Casts Urine Mucus 12/05/19 12/05/19 12/05/19 08:16 09:22 09:53 WBC MCV Plt Count Neutrophils # Monocytes # D-Dimer Sodium Chloride Carbon Dioxide BUN Creatinine Glucose POC Glucose (mg/dL) 124 H 110 H 146 H Plasma Lactic Acid Brett Total Bilirubin AST ALT Creatine Kinase Troponin I Urine Protein Urine Glucose (UA) Urine Ketones Hyaline Casts Urine Mucus 12/05/19 12/05/19 11:51 12:23 WBC MCV Plt Count Neutrophils # Monocytes # D-Dimer Sodium Chloride Carbon Dioxide BUN Creatinine Glucose POC Glucose (mg/dL) 208 H Plasma Lactic Acid Brett 2.4 H* Total Bilirubin AST ALT Creatine Kinase Troponin I Urine Protein Urine Glucose (UA) Urine Ketones Hyaline Casts Urine Mucus - Diagnostic Findings Chest x-ray: image reviewed (Pulmonary edema, improving based on chest x-ray today,) Assessment and Plan Assessment: Impression: Acute hypoxic respiratory failure secondary to pulmonary edema secondary to acute ST elevation myocardial infarction. Suspect systolic congestive heart failure echocardiogram is pending. Acute inferior wall ST elevation myocardial infarction. Status post cardiac catheterization and angioplasty as noted in HPI. Type 2 diabetes. Recently diagnosed and started on metformin. Recommendation: Continue present treatment plan as outlined by cardiology. Continue to monitor in the ICU and titrate FiO2 accordingly maintain O2 sat uration above 90%. Diuretics to be given and I have written for Lasix 40 mg IV push 1. Daily chest x-ray while in the ICU. Dual antiplatelet therapy. Atorvastatin. GI prophylaxis. We'll continue to follow. Time with Patient: Greater than 30
--- NOTE | 2019-12-05 13:50 | P.PN ---
Subjective Patient presented with an inferior posterior MS His symptoms were GI His history was very confusing If it hadn't been for his daughter he would have never accepted that he actually had chest discomfort radiating up into the neck His symptoms began on and he had a delayed presentation In the ER clinically he looked remarkably comfortable and is chatting away. His labs yesterday told different story He underwent coronary angiography and he has severe triple-vessel CAD The culprit vessel was obviously the proximal circumflex vessel was heavily calcified and finally Dr. Acevedo was only able to 80 plasty this without any stenting and establish some reasonable flow It was a high-risk procedure His LV function on fluoroscopic evaluation of the LV was significantly reduced His blood pressure ranges from 85 200 mmHg systolic respirations in the 20s he is tachycardic, sinus tachycardia afebrile Breath sounds are reduced bilaterally Heart sounds S1 and S2 are soft there's no murmurs he is tachycardic Extremities warm no edema Abdomen soft Labs have improved Sodium 140, potassium 4.5, BUN 65 creatinine 1.73 which is better than before Glucose 143 Lactate has improved CPK greater than 4000 Troponin 180 NT proBNP 11,000 Impression Status post inferoposterior MS in line likely severe LV dysfunction Cardiac shock but looks remarkably good resting very comfortably and completely asymptomatic Suggest Gradually maximize beta blockers and heart failure medications Continue dual antiplatelet therapy and statins 2-D echo and Doppler study tomorrow Objective - Vital Signs Vital signs: Vital Signs Temp 98.5 F 12/05/19 12:00 Pulse 101 H 12/05/19 12:00 Resp 25 H 12/05/19 12:00 BP 83/56 12/05/19 12:00 Pulse Ox 93 L 12/05/19 12:00 Intake & Output 12/04/19 12/05/19 12/05/19 18:59 06:59 18:59 Intake Total 749.354 987.071 203.475 Output Total 225 595 205 Balance 524.354 392.071 -1.525 Weight 74.843 kg 76.9 kg 76.9 kg Intake: IV 518.9 Intake, IV Titration 230.454 987.071 203.475 Amount Insulin Regular 100 unit 5.454 87.071 8.475 In Sodium Chloride 0.9% 100 ml @ Per Protocol IV .Q0M [facility] Rx#:[id number] Sodium Chloride 0.9% 1, 225 900 195 000 ml @ 75 mls/hr IV . [id number] [facility] [place] Rx#:[id number] Output: Urine 225 595 205 Other: Voiding Method Indwelling Catheter Indwelling Catheter Indwelling Catheter ABP, PAP, CO, CI - Last Documented Arterial Blood Pressure 139/80 - Labs CBC & Chem 7: 12/05/19 05:19 12/05/19 05:19 Labs: Abnormal Lab Results - Last 24 Hours (Table) 12/04/19 12/04/19 12/04/19 Range/Units 13:07 13:07 15:39 WBC (3.8-10.6) k/uL MCV (80.0-100.0) fL Plt Count (150-450) k/uL Neutrophils # (1.3-7.7) k/uL Monocytes # (0-1.0) k/uL BUN (9-20) mg/dL Creatinine (0.66-1.25) mg/dL Glucose (74-99) mg/dL POC Glucose (mg/dL) 499 H (75-99) mg/dL Plasma Lactic Acid Brett (0.7-2.0) mmol/L Total Bilirubin (0.2-1.3) mg/dL AST (17-59) U/L ALT (4-49) U/L Creatine Kinase 4375 H* (55-170) U/L Troponin I 122.000 H* (0.000-0.034) ng/mL Urine Protein (Negative) Urine Glucose (UA) (Negative) Urine Ketones (Negative) Hyaline Casts (0-2) /lpf Urine Mucus (None) /hpf 12/04/19 12/04/19 12/04/19 Range/Units 16:07 16:07 16:20 WBC (3.8-10.6) k/uL MCV (80.0-100.0) fL Plt Count (150-450) k/uL Neutrophils # (1.3-7.7) k/uL Monocytes # (0-1.0) k/uL BUN (9-20) mg/dL Creatinine (0.66-1.25) mg/dL Glucose (74-99) mg/dL POC Glucose (mg/dL) (75-99) mg/dL Plasma Lactic Acid Brett 8.2 H* (0.7-2.0) mmol/L Total Bilirubin (0.2-1.3) mg/dL AST (17-59) U/L ALT (4-49) U/L Creatine Kinase (55-170) U/L Troponin I 149.000 H* (0.000-0.034) ng/mL Urine Protein Trace H (Negative) Urine Glucose (UA) 4+ H (Negative) Urine Ketones 1+ H (Negative) Hyaline Casts 85 H (0-2) /lpf Urine Mucus Rare H (None) /hpf 12/04/19 12/04/19 12/04/19 Range/Units 18:05 18:29 19:06 WBC (3.8-10.6) k/uL MCV (80.0-100.0) fL Plt Count (150-450) k/uL Neutrophils # (1.3-7.7) k/uL Monocytes # (0-1.0) k/uL BUN (9-20) mg/dL Creatinine (0.66-1.25) mg/dL Glucose (74-99) mg/dL POC Glucose (mg/dL) 499 H 501 H 446 H (75-99) mg/dL Plasma Lactic Acid Brett (0.7-2.0) mmol/L Total Bilirubin (0.2-1.3) mg/dL AST (17-59) U/L ALT (4-49) U/L Creatine Kinase (55-170) U/L Troponin I (0.000-0.034) ng/mL Urine Protein (Negative) Urine Glucose (UA) (Negative) Urine Ketones (Negative) Hyaline Casts (0-2) /lpf Urine Mucus (None) /hpf 12/04/19 12/04/19 12/04/19 Range/Units 19:49 19:49 21:38 WBC (3.8-10.6) k/uL MCV (80.0-100.0) fL Plt Count (150-450) k/uL Neutrophils # (1.3-7.7) k/uL Monocytes # (0-1.0) k/uL BUN (9-20) mg/dL Creatinine (0.66-1.25) mg/dL Glucose (74-99) mg/dL POC Glucose (mg/dL) 289 H (75-99) mg/dL Plasma Lactic Acid Brett 6.2 H* (0.7-2.0) mmol/L Total Bilirubin (0.2-1.3) mg/dL AST (17-59) U/L ALT (4-49) U/L Creatine Kinase (55-170) U/L Troponin I 180.000 H* (0.000-0.034) ng/mL Urine Protein (Negative) Urine Glucose (UA) (Negative) Urine Ketones (Negative) Hyaline Casts (0-2) /lpf Urine Mucus (None) /hpf 12/04/19 12/04/19 12/04/19 Range/Units 22:43 23:10 23:40 WBC (3.8-10.6) k/uL MCV (80.0-100.0) fL Plt Count (150-450) k/uL Neutrophils # (1.3-7.7) k/uL Monocytes # (0-1.0) k/uL BUN (9-20) mg/dL Creatinine (0.66-1.25) mg/dL Glucose (74-99) mg/dL POC Glucose (mg/dL) 240 H 186 H (75-99) mg/dL Plasma Lactic Acid Brett 5.6 H* (0.7-2.0) mmol/L Total Bilirubin (0.2-1.3) mg/dL AST (17-59) U/L ALT (4-49) U/L Creatine Kinase (55-170) U/L Troponin I (0.000-0.034) ng/mL Urine Protein (Negative) Urine Glucose (UA) (Negative) Urine Ketones (Negative) Hyaline Casts (0-2) /lpf Urine Mucus (None) /hpf 12/05/19 12/05/19 12/05/19 Range/Units 01:00 01:45 02:35 WBC (3.8-10.6) k/uL MCV (80.0-100.0) fL Plt Count (150-450) k/uL Neutrophils # (1.3-7.7) k/uL Monocytes # (0-1.0) k/uL BUN (9-20) mg/dL Creatinine (0.66-1.25) mg/dL Glucose (74-99) mg/dL POC Glucose (mg/dL) 148 H 133 H (75-99) mg/dL Plasma Lactic Acid Brett 4.5 H* (0.7-2.0) mmol/L Total Bilirubin (0.2-1.3) mg/dL AST (17-59) U/L ALT (4-49) U/L Creatine Kinase (55-170) U/L Troponin I (0.000-0.034) ng/mL Urine Protein (Negative) Urine Glucose (UA) (Negative) Urine Ketones (Negative) Hyaline Casts (0-2) /lpf Urine Mucus (None) /hpf 12/05/19 12/05/19 12/05/19 Range/Units 02:50 03:48 04:52 WBC (3.8-10.6) k/uL MCV (80.0-100.0) fL Plt Count (150-450) k/uL Neutrophils # (1.3-7.7) k/uL Monocytes # (0-1.0) k/uL BUN (9-20) mg/dL Creatinine (0.66-1.25) mg/dL Glucose (74-99) mg/dL POC Glucose (mg/dL) 113 H 135 H 130 H (75-99) mg/dL Plasma Lactic Acid Brett (0.7-2.0) mmol/L Total Bilirubin (0.2-1.3) mg/dL AST (17-59) U/L ALT (4-49) U/L Creatine Kinase (55-170) U/L Troponin I (0.000-0.034) ng/mL Urine Protein (Negative) Urine Glucose (UA) (Negative) Urine Ketones (Negative) Hyaline Casts (0-2) /lpf Urine Mucus (None) /hpf 12/05/19 12/05/19 12/05/19 Range/Units 05:19 05:19 05:19 WBC 22.6 H (3.8-10.6) k/uL MCV 100.4 H (80.0-100.0) fL Plt Count 142 L (150-450) k/uL Neutrophils # 19.4 H (1.3-7.7) k/uL Monocytes # 1.5 H (0-1.0) k/uL BUN 65 H (9-20) mg/dL Creatinine 1.73 H (0.66-1.25) mg/dL Glucose 143 H (74-99) mg/dL POC Glucose (mg/dL) (75-99) mg/dL Plasma Lactic Acid Brett 4.1 H* (0.7-2.0) mmol/L Total Bilirubin 2.0 H (0.2-1.3) mg/dL AST 780 H (17-59) U/L ALT 106 H (4-49) U/L Creatine Kinase (55-170) U/L Troponin I (0.000-0.034) ng/mL Urine Protein (Negative) Urine Glucose (UA) (Negative) Urine Ketones (Negative) Hyaline Casts (0-2) /lpf Urine Mucus (None) /hpf 12/05/19 12/05/19 12/05/19 Range/Units 05:47 06:57 08:11 WBC (3.8-10.6) k/uL MCV (80.0-100.0) fL Plt Count (150-450) k/uL Neutrophils # (1.3-7.7) k/uL Monocytes # (0-1.0) k/uL BUN (9-20) mg/dL Creatinine (0.66-1.25) mg/dL Glucose (74-99) mg/dL POC Glucose (mg/dL) 131 H 123 H (75-99) mg/dL Plasma Lactic Acid Brett 2.5 H* (0.7-2.0) mmol/L Total Bilirubin (0.2-1.3) mg/dL AST (17-59) U/L ALT (4-49) U/L Creatine Kinase (55-170) U/L Troponin I (0.000-0.034) ng/mL Urine Protein (Negative) Urine Glucose (UA) (Negative) Urine Ketones (Negative) Hyaline Casts (0-2) /lpf Urine Mucus (None) /hpf 12/05/19 12/05/19 12/05/19 Range/Units 08:16 09:22 09:53 WBC (3.8-10.6) k/uL MCV (80.0-100.0) fL Plt Count (150-450) k/uL Neutrophils # (1.3-7.7) k/uL Monocytes # (0-1.0) k/uL BUN (9-20) mg/dL Creatinine (0.66-1.25) mg/dL Glucose (74-99) mg/dL POC Glucose (mg/dL) 124 H 110 H 146 H (75-99) mg/dL Plasma Lactic Acid Brett (0.7-2.0) mmol/L Total Bilirubin (0.2-1.3) mg/dL AST (17-59) U/L ALT (4-49) U/L Creatine Kinase (55-170) U/L Troponin I (0.000-0.034) ng/mL Urine Protein (Negative) Urine Glucose (UA) (Negative) Urine Ketones (Negative) Hyaline Casts (0-2) /lpf Urine Mucus (None) /hpf 12/05/19 12/05/19 Range/Units 11:51 12:23 WBC (3.8-10.6) k/uL MCV (80.0-100.0) fL Plt Count (150-450) k/uL Neutrophils # (1.3-7.7) k/uL Monocytes # (0-1.0) k/uL BUN (9-20) mg/dL Creatinine (0.66-1.25) mg/dL Glucose (74-99) mg/dL POC Glucose (mg/dL) 208 H (75-99) mg/dL Plasma Lactic Acid Brett 2.4 H* (0.7-2.0) mmol/L Total Bilirubin (0.2-1.3) mg/dL AST (17-59) U/L ALT (4-49) U/L Creatine Kinase (55-170) U/L Troponin I (0.000-0.034) ng/mL Urine Protein (Negative) Urine Glucose (UA) (Negative) Urine Ketones (Negative) Hyaline Casts (0-2) /lpf Urine Mucus (None) /hpf
--- NOTE | 2019-12-05 13:53 | P.HPIM ---
History of Present Illness H&P Date: 12/05/19 Jayy Menendez, is an 89-year-old male who presented to [facility] emergency room with a chief complaint of worsening shortness of breath, patient was also complaining of nausea vomiting and diarrhea he was evaluated in the emergency room, his EKG revealed evidence of acute ST elevation myocardial infarction ST was elevated in the 23 and aVF and depressed in anterior leads, his troponin level was significantly elevated the first troponin was 122, patient was taken immediately to the can labeler and underwent cardiac catheterization, patient was found to have severe coronary artery disease with 100% occlusion of the right coronary artery, calcified LAD with 80-90% lesions in the proximal LAD , patient had angioplasty of the first of 2 small marginal branch of the left circumflex and angiogram of the PDA branch of the left circumflex, and aspiration thrombectomy from the left circumflex. Patient was subsequently admitted to intensive care unit for further evaluation and treatm ent. Laboratory data in the emergency room was significant for elevated white blood count of 22.8, elevated d-dimer of 0.86, elevated BUN and creatinine at 53 and 2.54 respectively, elevated liver enzymes with AST at 742 and a LT at 83 elevated total bilirubin at 2.3 elevated BNP at 12,700 and elevated lactic acid at 11.5, and elevated glucose level at 600 , patient was afebrile chest x-ray revealed evidence of pulmonary congestion without clear infiltrate, urine analysis did not reveal any evidence of urinary tract infection. Patient was seen and examined in intensive care unit postprocedure, he is alert and oriented 3 in no apparent distress he denies any symptoms at this time, there is no fever or chills no headache or dizziness no chest pain no shortness of breath no cough no nausea or vomiting no abdominal pain no diarrhea no blood in the stools no burning with urination no frequency or urgency no hematuria there is no weakness or numbness in any of the extremities there is no change in vision or speech, gait was not checked. Patient has a known history of diabetes mellitus type 2, history of hypertension, history of hyperlipidemia, previous history of pneumonia. Past Medical History Past Medical History: Diabetes Mellitus, Hyperlipidemia, Myocardial Infarction (MT) Last Myocardial Infarction Date:: 12/04/2019 History of Any Multi-Drug Resistant Organisms: None Reported Past Surgical History: Heart Catheterization Additional Past Surgical History / Comment(s): 12/04/19 - Circ ballooned Smoking Status: Never smoker Medications and Allergies Home Medications Medication Instructions Recorded Confirmed Type Simvastatin [Zocor] 20 mg PO HS 12/04/19 12/04/19 History metFORMIN HCL [Glucophage] 500 mg PO DAILY 12/04/19 12/04/19 History Allergies Allergy/AdvReac Type Severity Reaction Status Date / Time No Known Allergies Allergy Verified 12/04/19 13:38 Physical Exam Vitals: Vital Signs Temp Pulse Resp BP Pulse Ox 12/05/19 12:00 98.5 F 101 H 25 H 83/56 93 L 12/05/19 11:00 104 H 28 H 81/56 92 L 12/05/19 10:00 93 28 H 89/62 91 L 12/05/19 09:00 99 23 100/73 12/05/19 08:00 97.5 F L 108 H 25 H 102/75 94 L 12/05/19 07:00 111 H 20 107/76 96 12/05/19 06:00 106 H 16 98/72 95 12/05/19 05:00 107 H 14 108/77 97 12/05/19 04:00 97.6 F 110 H 18 115/77 97 12/05/19 03:00 101 H 20 108/75 95 12/05/19 02:00 104 H 20 115/79 94 L 12/05/19 01:00 101 H 18 124/83 96 12/05/19 00:00 97.6 F 99 20 112/81 95 12/04/19 23:00 97 16 114/78 96 12/04/19 22:00 100 18 112/84 95 12/04/19 21:00 101 H 18 112/80 96 12/04/19 20:00 97.6 F 88 20 111/79 96 12/04/19 19:00 100 22 107/79 94 L 12/04/19 18:30 112 H 28 H 116/83 95 12/04/19 18:15 114 H 27 H 118/82 94 L 12/04/19 18:00 110 H 30 H 122/79 94 L 12/04/19 17:45 114 H 30 H 134/102 94 L 12/04/19 17:30 112 H 29 H 125/82 94 L 12/04/19 17:15 112 H 30 H 125/82 95 12/04/19 17:00 113 H 32 H 111/76 95 12/04/19 16:45 104 H 24 111/76 93 L 12/04/19 16:30 116 H 0 L 106/82 93 L 12/04/19 16:05 92 L 12/04/19 16:00 97.6 F 117 H 22 131/92 87 L 12/04/19 13:40 61 20 120/92 92 L 12/04/19 13:30 65 18 105/92 97 12/04/19 13:05 62 18 114/74 94 L Intake and Output 12/04/19 12/05/19 12/05/19 22:59 06:59 14:59 Intake Total 639.876 627.649 183.475 Output Total 450 370 170 Balance 189.876 257.649 13.475 Intake: IV 50 Intake, IV Titration 589.876 627.649 183.475 Amount Insulin Regular 100 unit 64.876 27.649 8.475 In Sodium Chloride 0.9% 100 ml @ Per Protocol IV .Q0M [facility]E Rx#:[id number] Sodium Chloride 0.9% 1, 525 600 175 000 ml @ 75 mls/hr IV . [id number] [facility] Rx#:[id number] Output: Urine 450 370 170 Other: Voiding Method Indwelling Catheter Indwelling Catheter Weight 74.843 kg 76.9 kg 76.9 kg In general patient is alert and oriented 3 in no apparent distress HEENT head normocephalic and atraumatic Neck is supple no JVD no goiter no lymphadenopathy Chest exam reveals a few scattered crackles bilaterally no wheezing Cardiac exam reveals regular heart sounds no gallops no murmurs Abdomen is soft nontender no organomegaly with normal bowel sounds Extremity exam reveals no edema no cyanosis or clubbing Neurological examination reveals no gross focal deficit Results CBC & Chem 7: 12/05/19 05:19 12/05/19 05:19 Labs: Abnormal Lab Results - Last 24 Hours (Table) 12/04/19 12/04/19 12/04/19 Range/Units 13:07 13:07 13:07 WBC 22.8 H (3.8-10.6) k/uL MCV 103.1 H (80.0-100.0) fL Plt Count (150-450) k/uL Neutrophils # 19.4 H (1.3-7.7) k/uL Monocytes # 1.8 H (0-1.0) k/uL D-Dimer 0.86 H (<0.60) mg/L FEU Sodium 132 L (137-145) mmol/L Chloride 92 L (98-107) mmol/L Carbon Dioxide 18 L (22-30) mmol/L BUN 53 H (9-20) mg/dL Creatinine 2.54 H (0.66-1.25) mg/dL Glucose 602 H* (74-99) mg/dL POC Glucose (mg/dL) (75-99) mg/dL Plasma Lactic Acid Brett (0.7-2.0) mmol/L Total Bilirubin 2.3 H (0.2-1.3) mg/dL AST 742 H (17-59) U/L ALT 83 H (4-49) U/L Creatine Kinase 4375 H* (55-170) U/L Troponin I (0.000-0.034) ng/mL Urine Protein (Negative) Urine Glucose (UA) (Negative) Urine Ketones (Negative) Hyaline Casts (0-2) /lpf Urine Mucus (None) /hpf 12/04/19 12/04/19 12/04/19 Range/Units 13:07 13:07 15:39 WBC (3.8-10.6) k/uL MCV (80.0-100.0) fL Plt Count (150-450) k/uL Neutrophils # (1.3-7.7) k/uL Monocytes # (0-1.0) k/uL D-Dimer (<0.60) mg/L FEU Sodium (137-145) mmol/L Chloride (98-107) mmol/L Carbon Dioxide (22-30) mmol/L BUN (9-20) mg/dL Creatinine (0.66-1.25) mg/dL Glucose (74-99) mg/dL POC Glucose (mg/dL) 499 H (75-99) mg/dL Plasma Lactic Acid Brett 11.5 H* (0.7-2.0) mmol/L Total Bilirubin (0.2-1.3) mg/dL AST (17-59) U/L ALT (4-49) U/L Creatine Kinase (55-170) U/L Troponin I 122.000 H* (0.000-0.034) ng/mL Urine Protein (Negative) Urine Glucose (UA) (Negative) Urine Ketones (Negative) Hyaline Casts (0-2) /lpf Urine Mucus (None) /hpf 12/04/19 12/04/19 12/04/19 Range/Units 16:07 16:07 16:20 WBC (3.8-10.6) k/uL MCV (80.0-100.0) fL Plt Count (150-450) k/uL Neutrophils # (1.3-7.7) k/uL Monocytes # (0-1.0) k/uL D-Dimer (<0.60) mg/L FEU Sodium (137-145) mmol/L Chloride (98-107) mmol/L Carbon Dioxide (22-30) mmol/L BUN (9-20) mg/dL Creatinine (0.66-1.25) mg/dL Glucose (74-99) mg/dL POC Glucose (mg/dL) (75-99) mg/dL Plasma Lactic Acid Brett 8.2 H* (0.7-2.0) mmol/L Total Bilirubin (0.2-1.3) mg/dL AST (17-59) U/L ALT (4-49) U/L Creatine Kinase (55-170) U/L Troponin I 149.000 H* (0.000-0.034) ng/mL Urine Protein Trace H (Negative) Urine Glucose (UA) 4+ H (Negative) Urine Ketones 1+ H (Negative) Hyaline Casts 85 H (0-2) /lpf Urine Mucus Rare H (None) /hpf 12/04/19 12/04/19 12/04/19 Range/Units 18:05 18:29 19:06 WBC (3.8-10.6) k/uL MCV (80.0-100.0) fL Plt Count (150-450) k/uL Neutrophils # (1.3-7.7) k/uL Monocytes # (0-1.0) k/uL D-Dimer (<0.60) mg/L FEU Sodium (137-145) mmol/L Chloride (98-107) mmol/L Carbon Dioxide (22-30) mmol/L BUN (9-20) mg/dL Creatinine (0.66-1.25) mg/dL Glucose (74-99) mg/dL POC Glucose (mg/dL) 499 H 501 H 446 H (75-99) mg/dL Plasma Lactic Acid Brett (0.7-2.0) mmol/L Total Bilirubin (0.2-1.3) mg/dL AST (17-59) U/L ALT (4-49) U/L Creatine Kinase (55-170) U/L Troponin I (0.000-0.034) ng/mL Urine Protein (Negative) Urine Glucose (UA) (Negative) Urine Ketones (Negative) Hyaline Casts (0-2) /lpf Urine Mucus (None) /hpf 12/04/19 12/04/19 12/04/19 Range/Units 19:49 19:49 21:38 WBC (3.8-10.6) k/uL MCV (80.0-100.0) fL Plt Count (150-450) k/uL Neutrophils # (1.3-7.7) k/uL Monocytes # (0-1.0) k/uL D-Dimer (<0.60) mg/L FEU Sodium (137-145) mmol/L Chloride (98-107) mmol/L Carbon Dioxide (22-30) mmol/L BUN (9-20) mg/dL Creatinine (0.66-1.25) mg/dL Glucose (74-99) mg/dL POC Glucose (mg/dL) 289 H (75-99) mg/dL Plasma Lactic Acid Brett 6.2 H* (0.7-2.0) mmol/L Total Bilirubin (0.2-1.3) mg/dL AST (17-59) U/L ALT (4-49) U/L Creatine Kinase (55-170) U/L Troponin I 180.000 H* (0.000-0.034) ng/mL Urine Protein (Negative) Urine Glucose (UA) (Negative) Urine Ketones (Negative) Hyaline Casts (0-2) /lpf Urine Mucus (None) /hpf 12/04/19 12/04/19 12/04/19 Range/Units 22:43 23:10 23:40 WBC (3.8-10.6) k/uL MCV (80.0-100.0) fL Plt Count (150-450) k/uL Neutrophils # (1.3-7.7) k/uL Monocytes # (0-1.0) k/uL D-Dimer (<0.60) mg/L FEU Sodium (137-145) mmol/L Chloride (98-107) mmol/L Carbon Dioxide (22-30) mmol/L BUN (9-20) mg/dL Creatinine (0.66-1.25) mg/dL Glucose (74-99) mg/dL POC Glucose (mg/dL) 240 H 186 H (75-99) mg/dL Plasma Lactic Acid Brett 5.6 H* (0.7-2.0) mmol/L Total Bilirubin (0.2-1.3) mg/dL AST (17-59) U/L ALT (4-49) U/L Creatine Kinase (55-170) U/L Troponin I (0.000-0.034) ng/mL Urine Protein (Negative) Urine Glucose (UA) (Negative) Urine Ketones (Negative) Hyaline Casts (0-2) /lpf Urine Mucus (None) /hpf 12/05/19 12/05/19 12/05/19 Range/Units 01:00 01:45 02:35 WBC (3.8-10.6) k/uL MCV (80.0-100.0) fL Plt Count (150-450) k/uL Neutrophils # (1.3-7.7) k/uL Monocytes # (0-1.0) k/uL D-Dimer (<0.60) mg/L FEU Sodium (137-145) mmol/L Chloride (98-107) mmol/L Carbon Dioxide (22-30) mmol/L BUN (9-20) mg/dL Creatinine (0.66-1.25) mg/dL Glucose (74-99) mg/dL POC Glucose (mg/dL) 148 H 133 H (75-99) mg/dL Plasma Lactic Acid Brett 4.5 H* (0.7-2.0) mmol/L Total Bilirubin (0.2-1.3) mg/dL AST (17-59) U/L ALT (4-49) U/L Creatine Kinase (55-170) U/L Troponin I (0.000-0.034) ng/mL Urine Protein (Negative) Urine Glucose (UA) (Negative) Urine Ketones (Negative) Hyaline Casts (0-2) /lpf Urine Mucus (None) /hpf 12/05/19 12/05/19 12/05/19 Range/Units 02:50 03:48 04:52 WBC (3.8-10.6) k/uL MCV (80.0-100.0) fL Plt Count (150-450) k/uL Neutrophils # (1.3-7.7) k/uL Monocytes # (0-1.0) k/uL D-Dimer (<0.60) mg/L FEU Sodium (137-145) mmol/L Chloride (98-107) mmol/L Carbon Dioxide (22-30) mmol/L BUN (9-20) mg/dL Creatinine (0.66-1.25) mg/dL Glucose (74-99) mg/dL POC Glucose (mg/dL) 113 H 135 H 130 H (75-99) mg/dL Plasma Lactic Acid Brett (0.7-2.0) mmol/L Total Bilirubin (0.2-1.3) mg/dL AST (17-59) U/L ALT (4-49) U/L Creatine Kinase (55-170) U/L Troponin I (0.000-0.034) ng/mL Urine Protein (Negative) Urine Glucose (UA) (Negative) Urine Ketones (Negative) Hyaline Casts (0-2) /lpf Urine Mucus (None) /hpf 12/05/19 12/05/19 12/05/19 Range/Units 05:19 05:19 05:19 WBC 22.6 H (3.8-10.6) k/uL MCV 100.4 H (80.0-100.0) fL Plt Count 142 L (150-450) k/uL Neutrophils # 19.4 H (1.3-7.7) k/uL Monocytes # 1.5 H (0-1.0) k/uL D-Dimer (<0.60) mg/L FEU Sodium (137-145) mmol/L Chloride (98-107) mmol/L Carbon Dioxide (22-30) mmol/L BUN 65 H (9-20) mg/dL Creatinine 1.73 H (0.66-1.25) mg/dL Glucose 143 H (74-99) mg/dL POC Glucose (mg/dL) (75-99) mg/dL Plasma Lactic Acid Brett 4.1 H* (0.7-2.0) mmol/L Total Bilirubin 2.0 H (0.2-1.3) mg/dL AST 780 H (17-59) U/L ALT 106 H (4-49) U/L Creatine Kinase (55-170) U/L Troponin I (0.000-0.034) ng/mL Urine Protein (Negative) Urine Glucose (UA) (Negative) Urine Ketones (Negative) Hyaline Casts (0-2) /lpf Urine Mucus (None) /hpf 12/05/19 12/05/19 12/05/19 Range/Units 05:47 06:57 08:11 WBC (3.8-10.6) k/uL MCV (80.0-100.0) fL Plt Count (150-450) k/uL Neutrophils # (1.3-7.7) k/uL Monocytes # (0-1.0) k/uL D-Dimer (<0.60) mg/L FEU Sodium (137-145) mmol/L Chloride (98-107) mmol/L Carbon Dioxide (22-30) mmol/L BUN (9-20) mg/dL Creatinine (0.66-1.25) mg/dL Glucose (74-99) mg/dL POC Glucose (mg/dL) 131 H 123 H (75-99) mg/dL Plasma Lactic Acid Brett 2.5 H* (0.7-2.0) mmol/L Total Bilirubin (0.2-1.3) mg/dL AST (17-59) U/L ALT (4-49) U/L Creatine Kinase (55-170) U/L Troponin I (0.000-0.034) ng/mL Urine Protein (Negative) Urine Glucose (UA) (Negative) Urine Ketones (Negative) Hyaline Casts (0-2) /lpf Urine Mucus (None) /hpf 12/05/19 12/05/19 12/05/19 Range/Units 08:16 09:22 09:53 WBC (3.8-10.6) k/uL MCV (80.0-100.0) fL Plt Count (150-450) k/uL Neutrophils # (1.3-7.7) k/uL Monocytes # (0-1.0) k/uL D-Dimer (<0.60) mg/L FEU Sodium (137-145) mmol/L Chloride (98-107) mmol/L Carbon Dioxide (22-30) mmol/L BUN (9-20) mg/dL Creatinine (0.66-1.25) mg/dL Glucose (74-99) mg/dL POC Glucose (mg/dL) 124 H 110 H 146 H (75-99) mg/dL Plasma Lactic Acid Brett (0.7-2.0) mmol/L Total Bilirubin (0.2-1.3) mg/dL AST (17-59) U/L ALT (4-49) U/L Creatine Kinase (55-170) U/L Troponin I (0.000-0.034) ng/mL Urine Protein (Negative) Urine Glucose (UA) (Negative) Urine Ketones (Negative) Hyaline Casts (0-2) /lpf Urine Mucus (None) /hpf 12/05/19 Range/Units 11:51 WBC (3.8-10.6) k/uL MCV (80.0-100.0) fL Plt Count (150-450) k/uL Neutrophils # (1.3-7.7) k/uL Monocytes # (0-1.0) k/uL D-Dimer (<0.60) mg/L FEU Sodium (137-145) mmol/L Chloride (98-107) mmol/L Carbon Dioxide (22-30) mmol/L BUN (9-20) mg/dL Creatinine (0.66-1.25) mg/dL Glucose (74-99) mg/dL POC Glucose (mg/dL) 208 H (75-99) mg/dL Plasma Lactic Acid Brett (0.7-2.0) mmol/L Total Bilirubin (0.2-1.3) mg/dL AST (17-59) U/L ALT (4-49) U/L Creatine Kinase (55-170) U/L Troponin I (0.000-0.034) ng/mL Urine Protein (Negative) Urine Glucose (UA) (Negative) Urine Ketones (Negative) Hyaline Casts (0-2) /lpf Urine Mucus (None) /hpf Thrombosis Risk Factor Assmnt - Choose All That Apply Each Factor Represents 1 point: Acute MT, Heart failure (<1month) Each Risk Factor Represents 3 Points: Age 75 years or older Thrombosis Risk Factor Assessment Total Risk Factor Score: 5 Thrombosis Risk Factor Assessment Level: High Risk Assessment and Plan Plan: 1. ST segment elevation myocardial infarction 2. Acute systolic congestive heart failure exacerbation 3. Acute hypoxic respiratory failure secondary to congestive heart failure and myocardial infarction 4. Severe hyperglycemia requiring insulin drip, patient was recently diagnosed with diabetes mellitus and was started on metformin. 5. Acute renal failure likely related to cardiorenal syndrome 6. Acute elevation in liver enzymes, likely related to liver congestion 7. Leukocytosis could be related to myocardial infarction, at this time we are monitoring for any sign of infection no clear evidence of pneumonia on chest x- ray urine analysis does not reveal any evidence of urinary tract infection blood cultures are pending, no open ulcers on the skin, no clinical evidence of intra-abdominal process. We will continue to monitor off antibiotic at this time. Medication and labs were reviewed continue to monitor in ICU Glucose level is better controlled we will discontinue insulin drip and start with sliding scale Will follow closely
[2019-12-05 14:57] LABS: Glucose,Whole Blood 215 mg/dL (75-99)
[2019-12-05 16:53] LABS: Glucose,Whole Blood 240 mg/dL (75-99)
[2019-12-05 20:35] LABS: Glucose,Whole Blood 269 mg/dL (75-99)
[2019-12-05] MEDS: ATORVASTATIN 80 MG TAB PO SCH (20:39)
[2019-12-05] MEDS: INSULIN DETEMIR (LEVEMIR) 100 UNIT/ML SYR SQ SCH (20:55)
[2019-12-06 05:16] LABS: Basophils % (A) 0 %; Eosinophils # (A) 0.1 k/uL (0-0.7); Eosinophils % (A) 1 %; HCT 43.2 % (39.0-53.0); HGB 14.2 gm/dL (13.0-17.5); Lymphocytes # (A) 1.4 k/uL (1.0-4.8); Lymphocytes % (A) 9 %; MCH 32.1 pg (25.0-35.0); MCHC 32.9 g/dL (31.0-37.0); MCV 97.5 fL (80.0-100.0); Mean Platelet Volume 8.8; Monocytes # (A) 1.1 k/uL (0-1.0); Monocytes % (A) 7 %; Neutrophils # (A) 13.4 k/uL (1.3-7.7); Neutrophils % (A) 83 %; Platelet Count 131 k/uL (150-450); RBC 4.43 m/uL (4.30-5.90); WBC 16.2 k/uL (3.8-10.6)
[2019-12-06 05:40] LABS: Albumin 3.2 g/dL (3.5-5.0); Potassium 4.6 mmol/L (3.5-5.1); Total Bilirubin 2.9 mg/dL (0.2-1.3); Total Protein 6.1 g/dL (6.3-8.2)
[2019-12-06 06:37] LABS: Glucose,Whole Blood 208 mg/dL (75-99)
[2019-12-06] MEDS: PANTOPRAZOLE 40 MG TABLET PO SCH (06:40)
[2019-12-06] MEDS: INSULIN ASPART (NovoLOG) 100 UNIT/ML VIAL SQ SCH ×4 (06:40→21:50)
--- NOTE | 2019-12-06 08:03 | XR ---
EXAMINATION TYPE: XR chest 1V portable DATE OF EXAM: 12/06/2019 COMPARISON: 12/05/2019 HISTORY: Shortness of breath TECHNIQUE: Single frontal view of the chest is obtained. FINDINGS: Cardiomegaly with bilateral infiltrate and pleural effusion. Diffuse interstitial pattern. Diffuse osteopenia and arthropathy of the shoulders. Hypertrophic changes of the spine. Atherosclero tic change aorta. IMPRESSION: Correlate for CHF stable in appearance. Underlying pneumonia not excluded.
[2019-12-06] MEDS: METOPROLOL TARTRATE 12.5 MG TAB PO SCH ×2 (08:49→21:50)
[2019-12-06] MEDS: ENOXAPARIN 30 MG/0.3 ML SYRINGE SQ SCH (08:49)
[2019-12-06] MEDS: ASPIRIN 81 MG PO SCH (08:49)
[2019-12-06] MEDS: CLOPIDOGREL 75 MG TAB PO SCH (08:49)
--- NOTE | 2019-12-06 10:07 | ECHOF ---
Referral Reason:STEMI MEASUREMENTS -------- HEIGHT: 162.6 cm WEIGHT: 77.1 kg BP: 95/68 RVIDd: 3.3 cm (< 3.3) IVSd: 1.2 cm (0.6 - 1.1) LVIDd: 5.2 cm (3.9 - 5.3) LVPWd: 1.2 cm (0.6 - 1.1) IVSs: 1.7 cm LVIDs: 4.3 cm LVPWs: 1.4 cm LA Diam: 3.4 cm (2.7 - 3.8) LAESV Index (A-L): 30.25 ml/m Ao Diam: 3.3 cm (2.0 - 3.7) AV Cusp: 2.0 cm (1.5 - 2.6) MV EXCURSION: 17.009 mm (> 18.000) MV EF SLOPE: 102 mm/s (70 - 150) EPSS: 1.1 cm MV E Leo: 0.81 m/s MV DecT: 100 ms MV A Leo: 0.70 m/s MV E/A Ratio: 1.16 AR PHT: 480 ms FINDINGS -------- Sinus rhythm. This was a technically difficult study with suboptimal views. The left ventricular size is normal. There is borderline concentric left ventricular hypertrophy. Overall left ventricular systolic function is moderate-severely impaired with, an EF between 30 - 35 %. Basal posterior LV wall motion is hypokinetic. Basal inferior LV wall motion is hypokinetic. Mid posterior LV wall motion is hypokinetic. Mid inferior LV wall motion is hypokinetic. Ap ical inferior LV wall motion is hypokinetic. The right ventricle is mildly enlarged. The left atrium was not well visualized. LA is midly dilated 29-33ml/m2. 5.0mg of Lumason was utilized for enhancement of images Interatrial and interventricular septum intact. Aortic valve is trileaflet and is mildly thickened. There is mild aortic regurgitation. Mild mitral annular calcification present. Mild mitral regurgitation is present. The tricuspid valve appears structurally normal. Trace/mild (physiologic) pulmonic regurgitation. The aortic root size is normal. Normal inferior vena cava with less than 50% inspiratory collapse consistent with estimated right atr ial pressure of 15 mmHg. There is a small, generalized pericardial effusion present. CONCLUSIONS -------- 1. This was a technically difficult study with suboptimal views. 2. The left ventricular size is normal. 3. There is borderline concentric left ventricular hypertrophy. 4. Overall left ventricular systolic function is moderate-severely impaired with, an EF between 30 - 35 %. 5. Basal posterior LV wall motion is hypokinetic. 6. Basal inferior LV wall motion is hypokinetic. 7. Mid posterior LV wall motion is hypokinetic. 8. Mid inferior LV wall motion is hypokinetic. 9. Apical inferior LV wall motion is hypokinetic. 10. The right ventricle is mildly enlarged. 11. The left atrium was not well visualized. 12. LA is midly dilated 29-33ml/m2. 13. 5.0mg of Lumason was utilized for enhancement of images 14. Aortic valve is trileaflet and is mildly thickened. 15. There is mild aortic regurgitation. 16. Mild mitral annular calcification present. 17. Mild mitral regurgitation is present. 18. The tricuspid valve appears structurally normal. 19. Trace/mild (physiologic) pulmonic regurgitation. 20. The aortic root size is normal. 21. Normal inferior vena cava with less than 50% inspiratory collapse consistent with estimated right atrial pressure of 15 mmHg. PEST CONTROL SPECIALIST: AVELINO Mendez
--- NOTE | 2019-12-06 10:44 | P.PN ---
Subjective Progress Note Date: 12/06/19 Principal diagnosis: Acute inferior wall myocardial infarction status post angioplasty This is an 89-year-old white male brought into the emergency room yesterday with 2 days history of shortness of breath, nausea vomiting, diarrhea. Patient was also complaining of waxing and waning shortness of breath but he had no clear- cut history of chest discomfort. But admitted to some indigestion in the chest yesterday. He also felt weak and fatigued. EKG in the ER showed evidence of inferior ST elevation and ST depression in V1 through V4. Patient was seen by cardiology and he was felt to have acute ST elevation myocardial infarction. Patient was recently diagnosed with diabetes and history of dyslipidemia. According to his daughter, patient did complain of midsternal chest discomfort going up to the jaw and the neck area on Friday. At any rate ST elevation myocardial infarction alert was called in at 1:18 PM, and Dr. Chong was notified, STEMI team was activated. Cardiac catheterization was performed and he underwent balloon angioplasty of the first obtuse marginal branch of the left circumflex balloon angioplasty of the PDA branch of the left circumflex and a spiration thrombectomy from the left circumflex. 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 There was also critical disease involving the proximal and mid LAD. Patient was transferred to the ICU, he was placed on dual antiplatelet therapy, and recommended high-intensity stat his chest x-ray on admission clearly showed evidence of pulmonary edema, chest x-ray today showed improvement in his pulmonary edema but not completely resolved. Patient has been on 10 L high flow nasal cannula, and he is down to 6 now O2 saturations 96%. After evaluating the patient, I recommended more diuretics. He was given Lasix 40 mg IV push 1. BNP level was noted to be elevated at 11,000. Pro-calcitonin level is pending. And his liver enzymes were noted to be elevated including AST of 780 ALT of 106 and alkaline phosphatase of 69. CPK on admission was over 4006 and a troponin over 180,000. On 12/06/2019 patient seen in follow-up in the intensive care unit, he is awake and alert, in no acute distress, he is resting comfortably in bed, he is currently on 2 L of oxygen. Pulse ox is 95%. Denies any worsening dyspnea, breathing seems to be comfortable, he is status post PCI and aspiration thrombectomy of the left circumflex 2. This is postoperative day 2. Currently on 0.9 normal saline at a rate of 20 ML per hour, echocardiogram has been completed, report is pending, patient denies any chest pain, no acute events overnight, lung sounds are clear diminished at the bases, today's chest x-ray has been reviewed showing bilateral infiltrates and pleural effusion and diffuse interstitial pattern. Echocardiogram showed moderately severe impaired left ventricular systolic function with an EF of 30-35%, hypokinesis of the basal posterior inferior mid posterior inferior and apical inferior wall. Mild mitral regurgitation. No altered mentation, extremities are warm. Objective - Vital Signs Vital signs: Vital Signs Temp 98.2 F 12/06/19 08:00 Pulse 100 12/06/19 09:00 Resp 24 12/06/19 09:00 BP 112/74 12/06/19 09:00 Pulse Ox 91 L 12/06/19 09:00 Intake & Output 12/05/19 12/06/19 12/06/19 18:59 06:59 18:59 Intake Total 303.475 40 240 Output Total 420 770 135 Balance -116.525 -730 105 Weight 76.9 kg 77.4 kg Intake: Intake, IV Titration 303.475 40 Amount Insulin Regular 100 unit 8.475 In Sodium Chloride 0.9% 100 ml @ Per Protocol IV .Q0M [facility] Rx#:[id number] Sodium Chloride 0.9% 1, 295 40 000 ml @ 75 mls/hr IV . [id number] [facility] Rx#:[id number] Oral 240 Output: Urine 420 770 135 Other: Voiding Method Indwelling Catheter Indwelling Catheter Indwelling Catheter ABP, PAP, CO, CI - Last Documented Arterial Blood Pressure 139/80 - Exam GENERAL EXAM: Alert, very pleasant, 89-year-old white , currently on 2 L of oxygen and the pulse ox of 95% comfortable in no apparent distress. HEAD: Normocephalic/atraumatic. EYES: Normal reaction of pupils, equal size. Conjunctiva pink, sclera white. NOSE: Clear with pink turbinates. THROAT: No erythema or exudates. NECK: No masses, no JVD, no thyroid enlargement, no adenopathy. CHEST: No chest wall deformity. Symmetrical expansion. LUNGS: Equal air entry with no crackles, wheeze, rhonchi or dullness. CVS: Regular rate and rhythm, normal S1 and S2, no gallops, no murmurs, no rubs ABDOMEN: Soft, nontender. No hepatosplenomegaly, normal bowel sounds, no guarding or rigidity. EXTREMITIES: No clubbing, no edema, no cyanosis, 2+ pulses and upper and lower extremities. MUSCULOSKELETAL: Muscle strength and tone normal. SPINE: No scoliosis or deformity SKIN: No rashes CENTRAL NERVOUS SYSTEM: Alert and oriented -3. No focal deficits, tone is normal in all 4 extremities. PSYCHIATRIC: Alert and oriented -3. Appropriate affect. Intact judgment and insight. - Labs CBC & Chem 7: 12/06/19 04:55 12/06/19 04:55 Labs: Abnormal Lab Results - Last 24 Hours (Table) 12/05/19 12/05/19 12/05/19 Range/Units 08:11 11:51 12:23 WBC (3.8-10.6) k/uL Plt Count (150-450) k/uL Neutrophils # (1.3-7.7) k/uL Monocytes # (0-1.0) k/uL Sodium (137-145) mmol/L BUN (9-20) mg/dL Creatinine (0.66-1.25) mg/dL Glucose (74-99) mg/dL POC Glucose (mg/dL) 208 H (75-99) mg/dL Plasma Lactic Acid Brett 2.4 H* (0.7-2.0) mmol/L Total Bilirubin (0.2-1.3) mg/dL AST (17-59) U/L ALT (4-49) U/L Total Protein (6.3-8.2) g/dL Albumin (3.5-5.0) g/dL Procalcitonin 0.88 H (0.02-0.09) ng/mL 12/05/19 12/05/19 12/05/19 Range/Units 14:54 15:05 16:52 WBC (3.8-10.6) k/uL Plt Count (150-450) k/uL Neutrophils # (1.3-7.7) k/uL Monocytes # (0-1.0) k/uL Sodium (137-145) mmol/L BUN (9-20) mg/dL Creatinine (0.66-1.25) mg/dL Glucose (74-99) mg/dL POC Glucose (mg/dL) 215 H 240 H (75-99) mg/dL Plasma Lactic Acid Brett 2.1 H* (0.7-2.0) mmol/L Total Bilirubin (0.2-1.3) mg/dL AST (17-59) U/L ALT (4-49) U/L Total Protein (6.3-8.2) g/dL Albumin (3.5-5.0) g/dL Procalcitonin (0.02-0.09) ng/mL 12/05/19 12/06/19 12/06/19 Range/Units 20:32 04:55 04:55 WBC 16.2 H (3.8-10.6) k/uL Plt Count 131 L (150-450) k/uL Neutrophils # 13.4 H (1.3-7.7) k/uL Monocytes # 1.1 H (0-1.0) k/uL Sodium 133 L (137-145) mmol/L BUN 74 H (9-20) mg/dL Creatinine 1.29 H (0.66-1.25) mg/dL Glucose 215 H (74-99) mg/dL POC Glucose (mg/dL) 269 H (75-99) mg/dL Plasma Lactic Acid Brett (0.7-2.0) mmol/L Total Bilirubin 2.9 H (0.2-1.3) mg/dL AST 251 H (17-59) U/L ALT 83 H (4-49) U/L Total Protein 6.1 L (6.3-8.2) g/dL Albumin 3.2 L (3.5-5.0) g/dL Procalcitonin (0.02-0.09) ng/mL 12/06/19 Range/Units 06:35 WBC (3.8-10.6) k/uL Plt Count (150-450) k/uL Neutrophils # (1.3-7.7) k/uL Monocytes # (0-1.0) k/uL Sodium (137-145) mmol/L BUN (9-20) mg/dL Creatinine (0.66-1.25) mg/dL Glucose (74-99) mg/dL POC Glucose (mg/dL) 208 H (75-99) mg/dL Plasma Lactic Acid Brett (0.7-2.0) mmol/L Total Bilirubin (0.2-1.3) mg/dL AST (17-59) U/L ALT (4-49) U/L Total Protein (6.3-8.2) g/dL Albumin (3.5-5.0) g/dL Procalcitonin (0.02-0.09) ng/mL Microbiology - Last 24 Hours (Table) 12/04/19 17:25 Blood Culture - Preliminary Blood No Growth after 24 hours Assessment and Plan Plan: Assessment: #1. Acute hypoxic respiratory failure secondary to pulmonary edema secondary to acute ST elevated myocardial infarction, and acute exacerbation of systolic CHF moderately severe impairment of LV function and EF of 30-35% #2. Acute inferior wall ST elevated myocardial infarction, status post cardiac catheterization, PCI of the first obtuse marginal branch of the left circumflex, and PCI of the PDA branch of the left circumflex and aspiration thrombectomy from the left circumflex on 12/04/2019 #3. Type 2 diabetes mellitus #4. Lifetime nonsmoker #5. Hyperlipidemia #6. Leukocytosis could be related to acute [place] #7. Acute kidney injury, possibly cardiorenal, improving Plan: Patient remains stable, vital signs are stable, no complaint of chest pain, breathing is comfortable, patient was given a dose of IV Lasix, his FiO2 is currently down to 2 L, breathing easier today's chest x-ray has been reviewed, showing bilateral infiltrates and pleural effusion and diffuse interstitial p attern. White count is improving, patient is afebrile. No acute issues overnight, renal profile is improving. Stable to be transferred out of intensive care unit to selective care unit today we'll continue to follow I performed a history & physical examination of the patient and discussed their management with my nurse practitioner, Merly You. I reviewed the nurse practitioner's note and agree with the documented findings and plan of care. Lung sounds are positive for diminished breath sounds at the bases. The findings and the impression was discussed with the patient. I attest to the documentation by the nurse practitioner. Time with Patient: Less than 30
--- NOTE | 2019-12-06 10:48 | P.PN ---
Subjective Progress Note Date: 12/06/19 Jayy Menendez, is an 89-year-old male who presented to [facility] emergency room with a chief complaint of worsening shortness of breath, patient was also complaining of nausea vomiting and diarrhea he was evaluated in the emergency room, his EKG revealed evidence of acute ST elevation myocardial infarction ST was elevated in the 23 and aVF and depressed in anterior leads, his troponin level was significantly elevated the first troponin was 122, patient was taken immediately to the [facility] and underwent cardiac catheterization, patient was found to have severe coronary artery disease with 100% occlusion of the right coronary artery, calcified LAD with 80-90% lesions in the proximal LAD , patient had angioplasty of the first of 2 small marginal branch of the left circumflex and angiogram of the PDA branch of the left circumflex, and aspiration thrombectomy from the left circumflex. Patient was subsequently admitted to intensive care unit for further evaluation and treatment. Laboratory data in the emergency room was significant for elevated white blood count of 22.8, elevated d-dimer of 0.86, elevated BUN and creatinine at 53 and 2.54 respectively, elevated liver enzymes with AST at 742 and a LT at 83 elevated total bilirubin at 2.3 elevated BNP at 12,700 and elevated lactic acid at 11.5, and elevated glucose level at 600 , patient was afebrile chest x- ray revealed evidence of pulmonary congestion without clear infiltrate, urine analysis did not reveal any evidence of urinary tract infection. Patient was seen and examined in intensive care unit postprocedure, he is alert and oriented 3 in no apparent distress he denies any symptoms at this time, there is no fever or chills no headache or dizziness no chest pain no shortness of breath no cough no nausea or vomiting no abdominal pain no diarrhea no blood in the stools no burning with urination no frequency or urgency no hematuria there is no weakness or numbness in any of the extremities there is no change in vision or speech, gait was not checked. Patient has a known history of diabetes mellitus type 2, history of hypertension, history of hyperlipidemia, previous history of pneumonia. On 12/06/2019 patient was seen and examined in the ICU, he is alert and oriented 3 he is sitting up in a chair, there is no fever or chills no headache or dizziness no chest pain no shortness of breath no cough no nausea or vomiting no abdominal pain no diarrhea no blood in the stools no burning with urination no frequency or urgency and no hematuria, white blood count is still elevated however better than yesterday down to 16.2 from 22.6 liver enzymes are also improving Objective - Vital Signs Vital signs: Vital Signs Temp 98.2 F 12/06/19 08:00 Pulse 100 12/06/19 09:00 Resp 24 12/06/19 09:00 BP 112/74 12/06/19 09:00 Pulse Ox 91 L 12/06/19 09:00 Intake & Output 12/05/19 12/06/19 12/06/19 18:59 06:59 18:59 Intake Total 303.475 40 240 Output Total 420 770 135 Balance -116.525 -730 105 Weight 76.9 kg 77.4 kg Intake: Intake, IV Titration 303.475 40 Amount Insulin Regular 100 unit 8.475 In Sodium Chloride 0.9% 100 ml @ Per Protocol IV .Q0M [facility] Rx#:[id number] Sodium Chloride 0.9% 1, 295 40 000 ml @ 75 mls/hr IV . [id number] [facility] Rx#:[id number] Oral 240 Output: Urine 420 770 135 Other: Voiding Method Indwelling Catheter Indwelling Catheter Indwelling Catheter ABP, PAP, CO, CI - Last Documented Arterial Blood Pressure 139/80 - Exam In general patient is alert and oriented 3 in no apparent distress HEENT head normocephalic and atraumatic Neck is supple no JVD no goiter no lymphadenopathy Chest exam reveals a few scattered crackles bilaterally no wheezing Cardiac exam reveals regular heart sounds no gallops no murmurs Abdomen is soft nontender no organomegaly with normal bowel sounds Extremity exam reveals no edema no cyanosis or clubbing Neurological examination reveals no gross focal deficit - Labs CBC & Chem 7: 12/06/19 04:55 12/06/19 04:55 Labs: Abnormal Lab Results - Last 24 Hours (Table) 12/05/19 12/05/19 12/05/19 Range/Units 08:11 11:51 12:23 WBC (3.8-10.6) k/uL Plt Count (150-450) k/uL Neutrophils # (1.3-7.7) k/uL Monocytes # (0-1.0) k/uL Sodium (137-145) mmol/L BUN (9-20) mg/dL Creatinine (0.66-1.25) mg/dL Glucose (74-99) mg/dL POC Glucose (mg/dL) 208 H (75-99) mg/dL Plasma Lactic Acid Brett 2.4 H* (0.7-2.0) mmol/L Total Bilirubin (0.2-1.3) mg/dL AST (17-59) U/L ALT (4-49) U/L Total Protein (6.3-8.2) g/dL Albumin (3.5-5.0) g/dL Procalcitonin 0.88 H (0.02-0.09) ng/mL 12/05/19 12/05/19 12/05/19 Range/Units 14:54 15:05 16:52 WBC (3.8-10.6) k/uL Plt Count (150-450) k/uL Neutrophils # (1.3-7.7) k/uL Monocytes # (0-1.0) k/uL Sodium (137-145) mmol/L BUN (9-20) mg/dL Creatinine (0.66-1.25) mg/dL Glucose (74-99) mg/dL POC Glucose (mg/dL) 215 H 240 H (75-99) mg/dL Plasma Lactic Acid Brett 2.1 H* (0.7-2.0) mmol/L Total Bilirubin (0.2-1.3) mg/dL AST (17-59) U/L ALT (4-49) U/L Total Protein (6.3-8.2) g/dL Albumin (3.5-5.0) g/dL Procalcitonin (0.02-0.09) ng/mL 12/05/19 12/06/19 12/06/19 Range/Units 20:32 04:55 04:55 WBC 16.2 H (3.8-10.6) k/uL Plt Count 131 L (150-450) k/uL Neutrophils # 13.4 H (1.3-7.7) k/uL Monocytes # 1.1 H (0-1.0) k/uL Sodium 133 L (137-145) mmol/L BUN 74 H (9-20) mg/dL Creatinine 1.29 H (0.66-1.25) mg/dL Glucose 215 H (74-99) mg/dL POC Glucose (mg/dL) 269 H (75-99) mg/dL Plasma Lactic Acid Brett (0.7-2.0) mmol/L Total Bilirubin 2.9 H (0.2-1.3) mg/dL AST 251 H (17-59) U/L ALT 83 H (4-49) U/L Total Protein 6.1 L (6.3-8.2) g/dL Albumin 3.2 L (3.5-5.0) g/dL Procalcitonin (0.02-0.09) ng/mL 12/06/19 Range/Units 06:35 WBC (3.8-10.6) k/uL Plt Count (150-450) k/uL Neutrophils # (1.3-7.7) k/uL Monocytes # (0-1.0) k/uL Sodium (137-145) mmol/L BUN (9-20) mg/dL Creatinine (0.66-1.25) mg/dL Glucose (74-99) mg/dL POC Glucose (mg/dL) 208 H (75-99) mg/dL Plasma Lactic Acid Brett (0.7-2.0) mmol/L Total Bilirubin (0.2-1.3) mg/dL AST (17-59) U/L ALT (4-49) U/L Total Protein (6.3-8.2) g/dL Albumin (3.5-5.0) g/dL Procalcitonin (0.02-0.09) ng/mL Microbiology - Last 24 Hours (Table) 12/04/19 17:25 Blood Culture - Preliminary Blood No Growth after 24 hours Assessment and Plan Plan: 1. ST segment elevation myocardial infarction 2. Acute systolic congestive heart failure exacerbation 3. Acute hypoxic respiratory failure secondary to congestive heart failure and myocardial infarction 4. Severe hyperglycemia requiring insulin drip, patient was recently diagnosed with diabetes mellitus and was started on metformin. 5. Acute renal failure likely related to cardiorenal syndrome 6. Acute elevation in liver enzymes, likely related to liver congestion 7. Leukocytosis could be related to myocardial infarction, at this time we are monitoring for any sign of infection no clear evidence of pneumonia on chest x- ray urine analysis does not reveal any evidence of urinary tract infection blood cultures are pending, no open ulcers on the skin, no clinical evidence of intra- abdominal process. We will continue to monitor off antibiotic at this time. Medication and labs were reviewed continue to monitor in ICU Glucose level is better controlled we will discontinue insulin drip and start with sliding scale, Lantus 10 unit was added at bedtime Will follow closely
[2019-12-06 11:37] LABS: Glucose,Whole Blood 214 mg/dL (75-99)
[2019-12-06 11:52] LABS: Hemoglobin A1C 7.7 % (4.0-6.0)
[2019-12-06 12:01] VITALS: BMI 29.2
[2019-12-06 17:02] LABS: Glucose,Whole Blood 207 mg/dL (75-99)
--- NOTE | 2019-12-06 17:07 | PN ---
PROGRESS NOTE An 89-year-old gentleman who is admitted to hospital with acute inferoposterior wall myocardial infarction and underwent emergent cardiac catheterization and angioplasty of left circumflex coronary artery with thrombectomy. Patient is feeling better. On exam, heart rate is 90 beats per minute. Blood pressure is 98/60, respiratory rate is 18. Chest exam reveals diminished air entry at the bases, heart exam reveals first and second heart sounds and an ejection systolic murmur. Abdomen is soft. Exam of extremities did not reveal any edema. Patient had an echocardiogram that showed an ejection fraction of 30%-35%, ASSESSMENT: Acute myocardial infarction, status post catheterization and angioplasty. The patient will continue aspirin, Lipitor, Plavix, Lasix, insulin, Lopressor. We can transfer him out of ICU. KOSTAS / KHRIS: [id number] /
[2019-12-06 20:26] LABS: Glucose,Whole Blood 201 mg/dL (75-99)
[2019-12-06] MEDS: INSULIN DETEMIR (LEVEMIR) 100 UNIT/ML SYR SQ SCH (21:50)
[2019-12-06] MEDS: ATORVASTATIN 80 MG TAB PO SCH (21:50)
[2019-12-07 06:01] LABS: Glucose,Whole Blood 117 mg/dL (75-99)
[2019-12-07 06:31] LABS: Basophils % (A) 0 %; Eosinophils % (A) 0 %; HCT 40.9 % (39.0-53.0); HGB 13.4 gm/dL (13.0-17.5); Lymphocytes # (A) 1.3 k/uL (1.0-4.8); Lymphocytes % (A) 9 %; MCH 32.1 pg (25.0-35.0); MCHC 32.7 g/dL (31.0-37.0); MCV 98.2 fL (80.0-100.0); Monocytes # (A) 1.1 k/uL (0-1.0); Monocytes % (A) 8 %; Neutrophils # (A) 11.7 k/uL (1.3-7.7); Neutrophils % (A) 81 %; Platelet Count 161 k/uL (150-450); RBC 4.16 m/uL (4.30-5.90); RDW 13.2 % (11.5-15.5); WBC 14.4 k/uL (3.8-10.6)
[2019-12-07] MEDS: PANTOPRAZOLE 40 MG TABLET PO SCH (06:31)
[2019-12-07] MEDS: INSULIN ASPART (NovoLOG) 100 UNIT/ML VIAL SQ SCH ×4 (06:32→20:40)
[2019-12-07 06:38] LABS: Albumin 3.3 g/dL (3.5-5.0); Calcium 9.1 mg/dL (8.4-10.2); Potassium 4.3 mmol/L (3.5-5.1); Total Bilirubin 3.3 mg/dL (0.2-1.3); Total Protein 6.3 g/dL (6.3-8.2)
[2019-12-07] MEDS: CLOPIDOGREL 75 MG TAB PO SCH (08:29)
[2019-12-07] MEDS: METOPROLOL TARTRATE 12.5 MG TAB PO SCH ×2 (08:29→20:40)
[2019-12-07] MEDS: ASPIRIN 81 MG PO SCH (08:30)
[2019-12-07] MEDS: ENOXAPARIN 30 MG/0.3 ML SYRINGE SQ SCH (08:30)
[2019-12-07] MEDS: FUROSEMIDE 20 MG TAB PO SCH (08:30)
--- NOTE | 2019-12-07 11:12 | PN ---
PROGRESS NOTE Jayy is an 89-year-old gentleman who is admitted to hospital with acute myocardial infarction, underwent cardiac catheterization and angioplasty of circumflex coronary artery with thrombectomy. He has been transferred out of ICU yesterday. This morning he is doing well and is free of significant symptoms. Echocardiogram shows an ejection fraction of 35%. On exam, heart rate is still 103 beats per minute. Blood pressure is 110/70, respiratory rate is 18. Chest exam reveals good air entry bilaterally. Heart exam reveals first and second heart sounds. No gallop. No murmur. Abdomen is soft. Exam of the extremities did not reveal any edema. Peripheral pulses are felt. He is currently on aspirin, Lipitor, Plavix, Lasix, insulin, Levemir, Lopressor. ASSESSMENT: 1. Acute myocardial infarction, status post catheterization and angioplasty. 2. Ischemic cardiomyopathy. PLAN: Increase patient's activity, hopefully home tomorrow. MMODL / IJN: [id number] /
--- NOTE | 2019-12-07 11:21 | P.PN ---
Subjective Progress Note Date: 12/07/19 Principal diagnosis: Acute inferior wall myocardial infarction status post angioplasty This is an 89-year-old white male brought into the emergency room yesterday with 2 days history of shortness of breath, nausea vomiting, diarrhea. Patient was also complaining of waxing and waning shortness of breath but he had no clear- cut history of chest discomfort. But admitted to some indigestion in the chest yesterday. He also felt weak and fatigued. EKG in the ER showed evidence of inferior ST elevation and ST depression in V1 through V4. Patient was seen by cardiology and he was felt to have acute ST elevation myocardial infarction. Patient was recently diagnosed with diabetes and history of dyslipidemia. According to his daughter, patient did complain of midsternal chest discomfort going up to the jaw and the neck area on Friday. At any rate ST elevation myocardial infarction alert was called in at 1:18 PM, and Dr. Chong was notified, STEMI team was activated. Cardiac catheterization was performed and he underwent balloon angioplasty of the first obtuse marginal branch of the left circumflex balloon angioplasty of the PDA branch of the left circumflex and a spiration thrombectomy from the left circumflex. 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 There was also critical disease involving the proximal and mid LAD. Patient was transferred to the ICU, he was placed on dual antiplatelet therapy, and recommended high-intensity stat his chest x-ray on admission clearly showed evidence of pulmonary edema, chest x-ray today showed improvement in his pulmonary edema but not completely resolved. Patient has been on 10 L high flow nasal cannula, and he is down to 6 now O2 saturations 96%. After evaluating the patient, I recommended more diuretics. He was given Lasix 40 mg IV push 1. BNP level was noted to be elevated at 11,000. Pro-calcitonin level is pending. And his liver enzymes were noted to be elevated including AST of 780 ALT of 106 and alkaline phosphatase of 69. CPK on admission was over 4006 and a troponin over 180,000. On 12/06/2019 patient seen in follow-up in the intensive care unit, he is awake and alert, in no acute distress, he is resting comfortably in bed, he is currently on 2 L of oxygen. Pulse ox is 95%. Denies any worsening dyspnea, breathing seems to be comfortable, he is status post PCI and aspiration thrombectomy of the left circumflex 2. This is postoperative day 2. Currently on 0.9 normal saline at a rate of 20 ML per hour, echocardiogram has been completed, report is pending, patient denies any chest pain, no acute events overnight, lung sounds are clear diminished at the bases, today's chest x-ray has been reviewed showing bilateral infiltrates and pleural effusion and diffuse interstitial pattern. Echocardiogram showed moderately severe impaired left ventricular systolic function with an EF of 30-35%, hypokinesis of the basal posterior inferior mid posterior inferior and apical inferior wall. Mild mitral regurgitation. No altered mentation, extremities are warm. On 11/29/2019 patient seen in follow-up on selective care unit, patient has been transferred out of intensive care unit 24 hours ago, has been stable, no complaints of chest pain or worsening dyspnea, room air pulse ox is 94%, hemodynamically stable, patient is afebrile, breathing seems to be comfortable, patient is resting comfortably in bed, lung sounds are clear to auscultation, he remains in sinus mechanism slightly tachycardic with a rate of 107 BPM. He is on the once daily dose of oral Lasix, he is on aspirin and Plavix, beta blockers, high-dose Lipitor, Lovenox for DVT prophylaxis and Protonix for GI prophylaxis, no acute issues overnight. No new chest x-ray, no lower extremity swelling. Objective - Vital Signs Vital signs: Vital Signs Temp 97.9 F 12/07/19 08:00 Pulse 103 H 12/07/19 08:00 Resp 16 12/07/19 08:00 BP 109/72 12/07/19 08:00 Pulse Ox 94 L 12/07/19 08:00 Intake & Output 12/06/19 12/07/19 12/07/19 18:59 06:59 18:59 Intake Total 240 240 Output Total 380 325 200 Balance -140 -325 40 Weight 77.4 kg 73.5 kg Intake: Oral 240 240 Output: Urine 380 325 200 Other: Voiding Method Urinal Urinal # Voids 2 ABP, PAP, CO, CI - Last Documented Arterial Blood Pressure 139/80 - Exam GENERAL EXAM: Alert, very pleasant, 89-year-old white , currently on room air with pulse ox of 94% comfortable in no apparent distress. HEAD: Normocephalic/atraumatic. EYES: Normal reaction of pupils, equal size. Conjunctiva pink, sclera white. NOSE: Clear with pink turbinates. THROAT: No erythema or exudates. NECK: No masses, no JVD, no thyroid enlargement, no adenopathy. CHEST: No chest wall deformity. Symmetrical expansion. LUNGS: Equal air entry with no crackles, wheeze, rhonchi or dullness. CVS: Regular rate and rhythm, normal S1 and S2, no gallops, no murmurs, no rubs ABDOMEN: Soft, nontender. No hepatosplenomegaly, normal bowel sounds, no guarding or rigidity. EXTREMITIES: No clubbing, no edema, no cyanosis, 2+ pulses and upper and lower extremities. MUSCULOSKELETAL: Muscle strength and tone normal. SPINE: No scoliosis or deformity SKIN: No rashes CENTRAL NERVOUS SYSTEM: Alert and oriented -3. No focal deficits, tone is normal in all 4 extremities. PSYCHIATRIC: Alert and oriented -3. Appropriate affect. Intact judgment and insight. - Labs CBC & Chem 7: 12/07/19 05:55 12/07/19 05:55 Labs: Abnormal Lab Results - Last 24 Hours (Table) 12/05/19 12/06/19 12/06/19 Range/Units 05:19 11:35 17:00 WBC (3.8-10.6) k/uL RBC (4.30-5.90) m/uL Neutrophils # (1.3-7.7) k/uL Monocytes # (0-1.0) k/uL Sodium (137-145) mmol/L BUN (9-20) mg/dL POC Glucose (mg/dL) 214 H 207 H (75-99) mg/dL Hemoglobin A1c 7.7 H (4.0-6.0) % Total Bilirubin (0.2-1.3) mg/dL AST (17-59) U/L ALT (4-49) U/L Alkaline Phosphatase (38-126) U/L Albumin (3.5-5.0) g/dL 12/06/19 12/07/19 12/07/19 Range/Units 20:24 05:55 05:55 WBC 14.4 H (3.8-10.6) k/uL RBC 4.16 L (4.30-5.90) m/uL Neutrophils # 11.7 H (1.3-7.7) k/uL Monocytes # 1.1 H (0-1.0) k/uL Sodium 136 L (137-145) mmol/L BUN 58 H (9-20) mg/dL POC Glucose (mg/dL) 201 H (75-99) mg/dL Hemoglobin A1c (4.0-6.0) % Total Bilirubin 3.3 H (0.2-1.3) mg/dL AST 138 H (17-59) U/L ALT 75 H (4-49) U/L Alkaline Phosphatase 134 H (38-126) U/L Albumin 3.3 L (3.5-5.0) g/dL 12/07/19 Range/Units 06:00 WBC (3.8-10.6) k/uL RBC (4.30-5.90) m/uL Neutrophils # (1.3-7.7) k/uL Monocytes # (0-1.0) k/uL Sodium (137-145) mmol/L BUN (9-20) mg/dL POC Glucose (mg/dL) 117 H (75-99) mg/dL Hemoglobin A1c (4.0-6.0) % Total Bilirubin (0.2-1.3) mg/dL AST (17-59) U/L ALT (4-49) U/L Alkaline Phosphatase (38-126) U/L Albumin (3.5-5.0) g/dL Microbiology - Last 24 Hours (Table) 12/04/19 17:25 Blood Culture - Preliminary Blood No Growth after 48 hours Assessment and Plan Plan: Assessment: #1. Acute hypoxic respiratory failure secondary to pulmonary edema secondary to acute ST elevated myocardial infarction, and acute exacerbation of systolic CHF moderately severe impairment of LV function and EF of 30-35% #2. Acute inferior wall ST elevated myocardial infarction, status post cardiac catheterization, PCI of the first obtuse marginal branch of the left circumflex, and PCI of the PDA branch of the left circumflex and aspiration thrombectomy from the left circumflex on 12/04/2019 #3. Type 2 diabetes mellitus #4. Lifetime nonsmoker #5. Hyperlipidemia #6. Leukocytosis could be related to acute NH #7. Acute kidney injury, possibly cardiorenal, improving Plan: Continue current medical treatment, continue once daily dose of oral Lasix, patient is maintaining stable oxygenation on room air, denies any worsening shortness of breath or chest pain, no acute issues overnight, increase activity as tolerated, from pulmonary perspective he can be considered for discharge home when cleared by cardiology. I performed a history & physical examination of the patient and discussed their management with my nurse practitioner, Merly You. I reviewed the nurse pr actitioner's note and agree with the documented findings and plan of care. Lung sounds are positive for diminished breath sounds at the bases. The findings and the impression was discussed with the patient. I attest to the documentation by the nurse practitioner. Time with Patient: Less than 30
[2019-12-07 11:37] LABS: Glucose,Whole Blood 234 mg/dL (75-99)
[2019-12-07 16:31] LABS: Glucose,Whole Blood 247 mg/dL (75-99)
--- NOTE | 2019-12-07 18:02 | P.PN ---
Subjective Progress Note Date: 12/07/19 Jayy Menendez, is an 89-year-old male who presented to [facility] emergency room with a chief complaint of worsening shortness of breath, patient was also complaining of nausea vomiting and diarrhea he was evaluated in the emergency room, his EKG revealed evidence of acute ST elevation myocardial infarction ST was elevated in the 23 and aVF and depressed in anterior leads, his troponin level was significantly elevated the first troponin was 122, patient was taken immediately to the general [facility] and underwent cardiac catheterization, patient was found to have severe coronary artery disease with 100% occlusion of the right coronary artery, calcified LAD with 80-90% lesions in the proximal LAD , patient had angioplasty of the first of 2 small marginal branch of the left circumflex and angiogram of the PDA branch of the left circumflex, and aspiration thrombectomy from the left circumflex. Patient was subsequently admitted to intensive care unit for further evaluation and treatment. Laboratory data in the emergency room was significant for elevated white blood count of 22.8, elevated d-dimer of 0.86, elevated BUN and creatinine at 53 and 2.54 respectively, elevated liver enzymes with AST at 742 and a LT at 83 elevated total bilirubin at 2.3 elevated BNP at 12,700 and elevated lactic acid at 11.5, and elevated glucose level at 600 , patient was afebrile chest x- ray revealed evidence of pulmonary congestion without clear infiltrate, urine analysis did not reveal any evidence of urinary tract infection. Patient was seen and examined in intensive care unit postprocedure, he is alert and oriented 3 in no apparent distress he denies any symptoms at this time, there is no fever or chills no headache or dizziness no chest pain no shortness of breath no cough no nausea or vomiting no abdominal pain no diarrhea no blood in the stools no burning with urination no frequency or urgency no hematuria there is no weakness or numbness in any of the extremities there is no change in vision or speech, gait was not checked. Patient has a known history of diabetes mellitus type 2, history of hypertension, history of hyperlipidemia, previous history of pneumonia. On 12/06/2019 patient was seen and examined in the ICU, he is alert and oriented 3 he is sitting up in a chair, there is no fever or chills no headache or dizziness no chest pain no shortness of breath no cough no nausea or vomiting no abdominal pain no diarrhea no blood in the stools no burning with urination no frequency or urgency and no hematuria, white blood count is still elevated however better than yesterday down to 16.2 from 22.6 liver enzymes are also improving. On 12/07 2019 patient was seen and examined on the medical floor he is alert and oriented 3 in no apparent distress there is no fever or chills no headache or dizziness no chest pain no shortness of breath no cough no nausea or vomiting no abdominal pain no diarrhea no burning was urination no frequency or urgency and no hematuria. Input from cardiology and pulmonary reviewed, possible discharge to home tomorrow. Objective - Vital Signs Vital signs: Vital Signs Temp 97.9 F 12/07/19 08:00 Pulse 103 H 12/07/19 08:00 Resp 16 12/07/19 08:00 BP 109/72 12/07/19 08:00 Pulse Ox 94 L 12/07/19 08:00 Intake & Output 12/06/19 12/07/19 12/07/19 18:59 06:59 18:59 Intake Total 240 240 Output Total 380 325 Balance -140 -325 240 Weight 77.4 kg 73.5 kg Intake: Oral 240 240 Output: Urine 380 325 Other: Voiding Method Urinal Urinal # Voids 2 ABP, PAP, CO, CI - Last Documented Arterial Blood Pressure 139/80 - Exam In general patient is alert and oriented 3 in no apparent distress HEENT head normocephalic and atraumatic Neck is supple no JVD no goiter no lymphadenopathy Chest exam reveals a few scattered crackles bilaterally no wheezing Cardiac exam reveals regular heart sounds no gallops no murmurs Abdomen is soft nontender no organomegaly with normal bowel sounds Extremity exam reveals no edema no cyanosis or clubbing Neurological examination reveals no gross focal deficit - Labs CBC & Chem 7: 12/07/19 05:55 12/07/19 05:55 Labs: Abnormal Lab Results - Last 24 Hours (Table) 12/05/19 12/05/19 12/06/19 Range/Units 05:19 08:11 11:35 WBC (3.8-10.6) k/uL RBC (4.30-5.90) m/uL Neutrophils # (1.3-7.7) k/uL Monocytes # (0-1.0) k/uL Sodium (137-145) mmol/L BUN (9-20) mg/dL POC Glucose (mg/dL) 214 H (75-99) mg/dL Hemoglobin A1c 7.7 H (4.0-6.0) % Total Bilirubin (0.2-1.3) mg/dL AST (17-59) U/L ALT (4-49) U/L Alkaline Phosphatase (38-126) U/L Albumin (3.5-5.0) g/dL Procalcitonin 0.88 H (0.02-0.09) ng/mL 12/06/19 12/06/19 12/07/19 Range/Units 17:00 20:24 05:55 WBC 14.4 H (3.8-10.6) k/uL RBC 4.16 L (4.30-5.90) m/uL Neutrophils # 11.7 H (1.3-7.7) k/uL Monocytes # 1.1 H (0-1.0) k/uL Sodium (137-145) mmol/L BUN (9-20) mg/dL POC Glucose (mg/dL) 207 H 201 H (75-99) mg/dL Hemoglobin A1c (4.0-6.0) % Total Bilirubin (0.2-1.3) mg/dL AST (17-59) U/L ALT (4-49) U/L Alkaline Phosphatase (38-126) U/L Albumin (3.5-5.0) g/dL Procalcitonin (0.02-0.09) ng/mL 12/07/19 12/07/19 Range/Units 05:55 06:00 WBC (3.8-10.6) k/uL RBC (4.30-5.90) m/uL Neutrophils # (1.3-7.7) k/uL Monocytes # (0-1.0) k/uL Sodium 136 L (137-145) mmol/L BUN 58 H (9-20) mg/dL POC Glucose (mg/dL) 117 H (75-99) mg/dL Hemoglobin A1c (4.0-6.0) % Total Bilirubin 3.3 H (0.2-1.3) mg/dL AST 138 H (17-59) U/L ALT 75 H (4-49) U/L Alkaline Phosphatase 134 H (38-126) U/L Albumin 3.3 L (3.5-5.0) g/dL Procalcitonin (0.02-0.09) ng/mL Microbiology - Last 24 Hours (Table) 12/04/19 17:25 Blood Culture - Preliminary Blood No Growth after 48 hours Assessment and Plan Plan: 1. ST segment elevation myocardial infarction 2. Acute systolic congestive heart failure exacerbation 3. Acute hypoxic respiratory failure secondary to congestive heart failure and myocardial infarction 4. Severe hyperglycemia requiring insulin drip, patient was recently diagnosed with diabetes mellitus and was started on metformin. 5. Acute renal failure likely related to cardiorenal syndrome 6. Acute elevation in liver enzymes, likely related to liver congestion 7. Leukocytosis could be related to myocardial infarction, at this time we are monitoring for any sign of infection no clear evidence of pneumonia on chest x- ray urine analysis does not reveal any evidence of urinary tract infection blood cultures are pending, no open ulcers on the skin, no clinical evidence of intra- abdominal process. We will continue to monitor off antibiotic at this time. Medication and labs were reviewed continue to monitor in ICU Glucose level is better controlled we will discontinue insulin drip and start with sliding scale, Lantus 10 unit was added at bedtime Will follow closely
[2019-12-07 20:35] LABS: Glucose,Whole Blood 255 mg/dL (75-99)
[2019-12-07] MEDS: INSULIN DETEMIR (LEVEMIR) 100 UNIT/ML SYR SQ SCH (20:40)
[2019-12-07] MEDS: ATORVASTATIN 80 MG TAB PO SCH (20:40)
[2019-12-08 06:14] LABS: Glucose,Whole Blood 155 mg/dL (75-99)
[2019-12-08] MEDS: PANTOPRAZOLE 40 MG TABLET PO SCH (06:51)
[2019-12-08] MEDS: INSULIN ASPART (NovoLOG) 100 UNIT/ML VIAL SQ SCH ×3 (06:52→15:47)
[2019-12-08] MEDS: CLOPIDOGREL 75 MG TAB PO SCH (09:57)
[2019-12-08] MEDS: METOPROLOL TARTRATE 12.5 MG TAB PO SCH (09:57)
[2019-12-08] MEDS: FUROSEMIDE 20 MG TAB PO SCH (09:57)
[2019-12-08] MEDS: ASPIRIN 81 MG PO SCH (09:58)
[2019-12-08] MEDS: ENOXAPARIN 30 MG/0.3 ML SYRINGE SQ SCH (09:58)
[2019-12-08 10:06] VITALS: RESP 18
[2019-12-08 12:25] LABS: Glucose,Whole Blood 258 mg/dL (75-99)
--- NOTE | 2019-12-08 15:29 | PN ---
PROGRESS NOTE An 89-year-old gentleman that is admitted to hospital with acute myocardial infarction. Doing well and is free of symptoms. Currently on aspirin, Lipitor, Plavix, Lasix, Lopressor. On exam, heart rate is around 100 beats per minute. Blood pressure is 107/70, respiratory rate is 18, O2 saturation is 95% on room air. There is no jugular venous distention. Chest exam reveals good air entry bilaterally. Heart exam reveals first and second heart sounds. No gallop. Abdomen is soft. Exam of the extremities did not reveal any edema. Peripheral pulses are felt. LABS: Show that the AST and ALT are coming down. BUN is 58, which is also improving. ASSESSMENT: 1. Acute myocardial infarction, status post catheterization and angioplasty. 2. Ischemic cardiomyopathy with congestive heart failure. PLAN: Patient will continue current medication. Stable for discharge. Follow up with Dr. Stubbs in the office. MMODL / IJN: [id number] /
--- NOTE | 2019-12-08 15:38 | P.PN ---
Subjective Progress Note Date: 12/08/19 Principal diagnosis: Acute inferior wall myocardial infarction status post angioplasty This is an 89-year-old white male brought into the emergency room yesterday with 2 days history of shortness of breath, nausea vomiting, diarrhea. Patient was also complaining of waxing and waning shortness of breath but he had no clear- cut history of chest discomfort. But admitted to some indigestion in the chest yesterday. He also felt weak and fatigued. EKG in the ER showed evidence of inferior ST elevation and ST depression in V1 through V4. Patient was seen by cardiology and he was felt to have acute ST elevation myocardial infarction. Patient was recently diagnosed with diabetes and history of dyslipidemia. According to his daughter, patient did complain of midsternal chest discomfort going up to the jaw and the neck area on Friday. At any rate ST elevation myocardial infarction alert was called in at 1:18 PM, and Dr. Chong was notified, STEMI team was activated. Cardiac catheterization was performed and he underwent balloon angioplasty of the first obtuse marginal branch of the left circumflex balloon angioplasty of the PDA branch of the left circumflex and a spiration thrombectomy from the left circumflex. 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 There was also critical disease involving the proximal and mid LAD. Patient was transferred to the ICU, he was placed on dual antiplatelet therapy, and recommended high-intensity stat his chest x-ray on admission clearly showed evidence of pulmonary edema, chest x-ray today showed improvement in his pulmonary edema but not completely resolved. Patient has been on 10 L high flow nasal cannula, and he is down to 6 now O2 saturations 96%. After evaluating the patient, I recommended more diuretics. He was given Lasix 40 mg IV push 1. BNP level was noted to be elevated at 11,000. Pro-calcitonin level is pending. And his liver enzymes were noted to be elevated including AST of 780 ALT of 106 and alkaline phosphatase of 69. CPK on admission was over 4006 and a troponin over 180,000. On 12/06/2019 patient seen in follow-up in the intensive care unit, he is awake and alert, in no acute distress, he is resting comfortably in bed, he is currently on 2 L of oxygen. Pulse ox is 95%. Denies any worsening dyspnea, breathing seems to be comfortable, he is status post PCI and aspiration thrombectomy of the left circumflex 2. This is postoperative day 2. Currently on 0.9 normal saline at a rate of 20 ML per hour, echocardiogram has been completed, report is pending, patient denies any chest pain, no acute events overnight, lung sounds are clear diminished at the bases, today's chest x-ray has been reviewed showing bilateral infiltrates and pleural effusion and diffuse interstitial pattern. Echocardiogram showed moderately severe impaired left ventricular systolic function with an EF of 30-35%, hypokinesis of the basal posterior inferior mid posterior inferior and apical inferior wall. Mild mitral regurgitation. No altered mentation, extremities are warm. On 12/07/2019 patient seen in follow-up on selective care unit, patient has been transferred out of intensive care unit 24 hours ago, has been stable, no complaints of chest pain or worsening dyspnea, room air pulse ox is 94%, hemodynamically stable, patient is afebrile, breathing seems to be comfortable, patient is resting comfortably in bed, lung sounds are clear to auscultation, he remains in sinus mechanism slightly tachycardic with a rate of 107 BPM. He is on the once daily dose of oral Lasix, he is on aspirin and Plavix, beta blockers, high-dose Lipitor, Lovenox for DVT prophylaxis and Protonix for GI prophylaxis, no acute issues overnight. No new chest x-ray, no lower extremity swelling. On 12/08/2019 patient is seen in follow-up on selective care unit. Patient is resting comfortably in bed, he is currently on room air, room air pulse ox is 95%, afebrile, hemodynamically stable, he denies any chest pain or shortness of breath, respirations are nonlabored. No acute events overnight. Lung sounds are clear, diminished at the bases, no difficulty breathing. Patient is asking about going home today, from pulmonary perspective patient is stable for discharge. Objective - Vital Signs Vital signs: Vital Signs Temp 97.0 F L 12/08/19 11:25 Pulse 101 H 12/08/19 11:25 Resp 18 12/08/19 11:25 BP 104/69 12/08/19 11:25 Pulse Ox 95 12/08/19 11:25 Intake & Output 12/07/19 12/08/19 12/08/19 18:59 06:59 18:59 Intake Total 480 236 Output Total 350 300 225 Balance 130 -300 11 Weight 73.3 kg Intake: Oral 480 236 Output: Urine 350 300 225 Other: Voiding Method Urinal Urinal # Voids 1 1 # Bowel Movements 1 ABP, PAP, CO, CI - Last Documented Arterial Blood Pressure 139/80 - Exam GENERAL EXAM: Alert, very pleasant, 89-year-old white , currently on room air with pulse ox of 94% comfortable in no apparent distress. HEAD: Normocephalic/atraumatic. EYES: Normal reaction of pupils, equal size. Conjunctiva pink, sclera white. NOSE: Clear with pink turbinates. THROAT: No erythema or exudates. NECK: No masses, no JVD, no thyroid enlargement, no adenopathy. CHEST: No chest wall deformity. Symmetrical expansion. LUNGS: Equal air entry with no crackles, wheeze, rhonchi or dullness. CVS: Regular rate and rhythm, normal S1 and S2, no gallops, no murmurs, no rubs ABDOMEN: Soft, nontender. No hepatosplenomegaly, normal bowel sounds, no guarding or rigidity. EXTREMITIES: No clubbing, no edema, no cyanosis, 2+ pulses and upper and lower extremities. MUSCULOSKELETAL: Muscle strength and tone normal. SPINE: No scoliosis or deformity SKIN: No rashes CENTRAL NERVOUS SYSTEM: Alert and oriented -3. No focal deficits, tone is normal in all 4 extremities. PSYCHIATRIC: Alert and oriented -3. Appropriate affect. Intact judgment and insight. - Labs CBC & Chem 7: 12/07/19 05:55 12/07/19 05:55 Labs: Abnormal Lab Results - Last 24 Hours (Table) 12/07/19 12/07/19 12/08/19 Range/Units 16:27 20:30 06:09 POC Glucose (mg/dL) 247 H 255 H 155 H (75-99) mg/dL 12/08/19 Range/Units 12:24 POC Glucose (mg/dL) 258 H (75-99) mg/dL Microbiology - Last 24 Hours (Table) 12/04/19 17:25 Blood Culture - Preliminary Blood No Growth after 72 hours Assessment and Plan Plan: Assessment: #1. Acute hypoxic respiratory failure secondary to pulmonary edema secondary to acute ST elevated myocardial infarction, and acute exacerbation of systolic CHF moderately severe impairment of LV function and EF of 30-35% #2. Acute inferior wall ST elevated myocardial infarction, status post cardiac catheterization, PCI of the first obtuse marginal branch of the left circumflex, and PCI of the PDA branch of the left circumflex and aspiration thrombectomy from the left circumflex on 12/04/2019 #3. Type 2 diabetes mellitus #4. Lifetime nonsmoker #5. Hyperlipidemia #6. Leukocytosis could be related to acute CA #7. Acute kidney injury, possibly cardiorenal, improving Plan: Continue current medical treatment, continue once daily dose of oral Lasix, no worsening dyspnea, no chest pain no acute events overnight, vital signs have bee n stable, increase activity as tolerated, patient has been cleared for discharge from pulmonary perspective yesterday, today he is cleared by cardiology, anticipate discharge home today. I performed a history & physical examination of the patient and discussed their management with my nurse practitioner, Merly You. I reviewed the nurse practitioner's note and agree with the documented findings and plan of care. Lung sounds are positive for diminished breath sounds at the bases. The find ings and the impression was discussed with the patient. I attest to the documentation by the nurse practitioner. Time with Patient: Less than 30
[2019-12-08 15:42] VITALS: BP 102/68; PULSE 95; TEMP 97.9
--- NOTE | 2019-12-09 14:46 | CDI ---
Documentation Clarification Form Date: 12/09/19 From: Idania Dominguez CCS Phone: If you have a question about this query, please contact Judie Rosa, Conductor Orchestra at [phone] between 8am and 5pm. Admit Date: 12/04/19 Discharge Date:12/08/19 Patient Name: Jayy Menendez Visit Number: [id number] ATTENTION: The Clinical Documentation Specialists (CDI) and [facility] Coding Staff appreciate your assistance in clarifying documentation. Please respond to the clarification below the line at the bottom and electronically sign. The CDI & [facility] Coding staff will review the response and follow-up if needed. Please note: Queries are made part of the Legal Health Record. If you have any questions, please contact the author of this message via ITS. Dear Dr. Duggan, CKD (cardiorenal syndrome) is documented in the H&P, PNs. History/Risk Factors: HTN, DM, CHF, CAD, MT Clinical Indicators: Acute renal failure likely related to cardiorenal syndrome Current BUN: 53, 65, 74 CR: 2.54, 1.73, 1.29 GFR: 22, 35, 50 In order to capture the severity of condition, please clarify the stage of the CKD, if known: CKD Stage 1 (GFR > 90) CKD Stage 2 (GFR 60-89) CKD Stage 3 (GFR 30-59) CKD Stage 4 (GFR 15-29) CKD Stage 5 (GFR <15) ESRD Other, please specify Unable to determine CKD stage 3 MTDD
--- NOTE | 2019-12-09 14:54 | CDI ---
Documentation Clarification Form Date: 12/09/19 From: Idania Dominguez CCS Phone: If you have a question about this query, please contact Judie Rosa, Abstract Checker at [phone] between 8am and 5pm. Admit Date: 12/04/19 Discharge Date:12/08/19 Patient Name: Jayy Menendez Visit Number: [id number] ATTENTION: The Clinical Documentation Specialists (CDI) and [facility] Coding Staff appreciate your assistance in clarifying documentation. Please respond to the clarification below the line at the bottom and electronically sign. The CDI & [facility] Coding staff will review the response and follow-up if needed. Please note: Queries are made part of the Legal Health Record. If you have any questions, please contact the author of this message via ITS. Dear Dr. Duggan, The diagnosis cardiac shock was documented in the record, but is not noted in subsequent documentation. PN 12/04 documents: Status post inferoposterior OK in line likely severe LV dysfunction Cardiac shock but looks remarkably good resting very comfortably and completely asymptomatic History/Risk Factors: OK, HTN, CAD, KERI, DM Clinical Indicators: BP 107/79 Treatment: Asymptomatic Please clarify if the cardiac shock was Present/active this admission Treated and resolved this admission Complication of procedure Ruled out Other, please specify Clinically unable to determine Cardiac shock treated, resolved this admission MTDD
--- NOTE | 2019-12-09 17:28 | P.DS ---
Providers Date of admission: 12/04/19 13:35 Expected date of discharge: 12/08/19 Attending physician: Priscilla Duggan Consults: 12/04/19 13:35 Consult Physician Urgent Consulting Provider: Crescencio Stubbs Consult Reason/Comments: stemi,chf Do you want consulting provider notified?: Already Contacted 12/04/19 15:14 Consult Physician Routine Consulting Provider: [facility] Consult Reason/Comments: Post Interventional patient Do you want consulting provider notified?: Already Contacted 12/04/19 15:53 Consult Physician Routine Consulting Provider: Rogelio Bridges Consult Reason/Comments: icu management Do you want consulting provider notified?: Yes Primary care physician: Dipika Silverman Hospital Course: Diagnosis on discharge: 1. ST segment elevation myocardial infarction 2. Acute systolic congestive heart failure exacerbation 3. Acute hypoxic respiratory failure secondary to congestive heart failure and myocardial infarction 4. Severe hyperglycemia requiring insulin drip, patient was recently diagnosed with diabetes mellitus and was started on metformin. 5. Acute renal failure likely related to cardiorenal syndrome 6. Acute elevation in liver enzymes, likely related to liver congestion 7. Leukocytosis could be related to myocardial infarction, at this time we are monitoring for any sign of infection no clear evidence of pneumonia on chest x- ray urine analysis does not reveal any evidence of urinary tract infection blood cultures are pending, no open ulcers on the skin, no clinical evidence of intra-abdominal process. We will continue to monitor off antibiotic at this time. Hospital course: Jayy Menendez, is an 89-year-old male who presented to [facility] emergency room with a chief complaint of worsening shortness of breath, patient was also complaining of nausea vomiting and diarrhea he was evaluated in the emergency room, his EKG revealed evidence of acute ST elevation myocardial infarction ST was elevated in the 23 and aVF and depressed in anterior leads, his troponin level was significantly elevated the first troponin was 122, patient was taken immediately to the laborer [facility] and underwent cardiac catheterization, patient was found to have severe coronary artery disease with 100% occlusion of the right coronary artery, calcified LAD with 80-90% lesions in the proximal LAD , patient had angioplasty of the first of 2 small marginal branch of the left circumflex and angiogram of the PDA branch of the left circumflex, and aspiration thrombectomy from the left circumflex. Patient was subsequently admitted to intensive care unit for further evaluation and treatment. Laboratory data in the emergency room was significant for elevated white blood count of 22.8, elevated d-dimer of 0.86, elevated BUN and creatinine at 53 and 2.54 respectively, elevated liver enzymes with AST at 742 and a LT at 83 elevated total bilirubin at 2.3 elevated BNP at 12,700 and elevated lactic acid at 11.5, and elevated glucose level at 600 , patient was afebrile chest x- ray revealed evidence of pulmonary congestion without clear infiltrate, urine analysis did not reveal any evidence of urinary tract infection. Patient was seen and examined in intensive care unit postprocedure, he is alert and oriented 3 in no apparent distress he denies any symptoms at this time, there is no fever or chills no headache or dizziness no chest pain no shortness of breath no cough no nausea or vomiting no abdominal pain no diarrhea no blood in the stools no burning with urination no frequency or urgency no hematuria there is no weakness or numbness in any of the extremities there is no change in vision or speech, gait was not checked. Patient has a known history of diabetes mellitus type 2, history of hypertension, history of hyperlipidemia, previous history of pneumonia. On 12/06/2019 patient was seen and examined in the ICU, he is alert and oriented 3 he is sitting up in a chair, there is no fever or chills no headache or dizziness no chest pain no shortness of breath no cough no nausea or vomiting no abdominal pain no diarrhea no blood in the stools no burning with urination no frequency or urgency and no hematuria, white blood count is still elevated however better than yesterday down to 16.2 from 22.6 liver enzymes are also improving. On 12/07 2019 patient was seen and examined on the medical floor he is alert and oriented 3 in no apparent distress there is no fever or chills no headache or dizziness no chest pain no shortness of breath no cough no nausea or vomiting no abdominal pain no diarrhea no burning was urination no frequency or urgency and no hematuria. Input from cardiology and pulmonary reviewed, possible discharge to home tomorrow. On 12/08/2019 patient was seen and examined on the telemetry floor he is alert and oriented 3 in no apparent distress there is no fever or chills no headache or dizziness no chest pain no shortness of breath no cough no nausea or vomiting no abdominal pain no diarrhea no burning with urination no frequency or urgency no hematuria he was evaluated by cardiology and was cleared for discharge today. Patient Condition at Discharge: Critical Plan - Discharge Summary New Discharge Prescriptions: New Aspirin 81 mg PO DAILY chew Furosemide [Lasix] 20 mg PO DAILY tab Insulin Detemir (Levemir) [Levemir] 10 unit SQ HS syr Atorvastatin [Lipitor] 80 mg PO HS tab Metoprolol Tartrate [Lopressor] 12.5 mg PO BID tab metFORMIN HCL 500 mg PO AC-BID 30 Days #60 tablet Nitroglycerin Sl Tabs [Nitrostat] 0.4 mg SUBLINGUAL Q5M PRN tab PRN Reason: Chest Pain Clopidogrel [Plavix] 75 mg PO DAILY tab Discontinued metFORMIN HCL [Glucophage] 500 mg PO DAILY Simvastatin [Zocor] 20 mg PO HS Discharge Medication List Aspirin 81 mg PO DAILY chew 12/08/19 [Rx] Atorvastatin [Lipitor] 80 mg PO HS tab 12/08/19 [Rx] Clopidogrel [Plavix] 75 mg PO DAILY tab 12/08/19 [Rx] Furosemide [Lasix] 20 mg PO DAILY tab 12/08/19 [Rx] Insulin Detemir (Levemir) [Levemir] 10 unit SQ HS syr 12/08/19 [Rx] Metoprolol Tartrate [Lopressor] 12.5 mg PO BID tab 12/08/19 [Rx] Nitroglycerin Sl Tabs [Nitrostat] 0.4 mg SUBLINGUAL Q5M PRN tab 12/08/19 [Rx] metFORMIN HCL 500 mg PO AC-BID 30 Days #60 tablet 12/08/19 [Rx] Follow up Appointment(s)/Referral(s): Crescencio Stubbs MD [STAFF PHYSICIAN] - 12/15/19 10:15 am (FRIDAY ) [facility] - 1 Week (Called and notifed. Will see Friday.) Dipika Silverman MD [Primary Care Provider] - 12/14/19 1:00 pm (FRIDAY) [facility], [NON-STAFF] - (Cancelled referral.) Patient Instructions/Handouts: *Surgery [facility] - After Heart Catheterization - Tray Setter Instructions, Heart Attack (DC) Activity/Diet/Wound Care/Special Instructions: Patient requires a cane at discharge for unsteady gait DR. DAWSON STATES PATIENT IS CLEARED FOR DISCHARGE. Discharge Disposition: HOME WITH HOME HEALTH SERVICES
== END 2019-12-08 16:27 | disposition home health service (06) | DRG 250 ==
LOC: EC 12:23 → 2SICU 13:35 → 3SCARD 12-06 17:27
PROVIDERS: ADMIT Internal Medicine; ATTEND Internal Medicine
PROC: 4A023N7 Measurement of Cardiac Sampling and Pressure, Left Heart, Percutaneous Approach (ICD-10-PCS; principal; 2019-12-04 13:43)
PROC: 02C03ZZ Extirpation of Matter from Coronary Artery, One Artery, Percutaneous Approach (ICD-10-PCS; principal; 2019-12-04 13:43)
PROC: B2111ZZ Fluoroscopy of Multiple Coronary Arteries using Low Osmolar Contrast (ICD-10-PCS; principal; 2019-12-04 13:43)
PROC: 02723ZZ Dilation of Coronary Artery, Three Arteries, Percutaneous Approach (ICD-10-PCS; principal; 2019-12-04 13:43)
DX: I21.19 ST elevation (STEMI) myocardial infarction involving other coronary artery of inferior wall (principal); I50.23 Acute on chronic systolic (congestive) heart failure; J96.01 Acute respiratory failure with hypoxia; R57.0 Cardiogenic shock; I13.0 Hypertensive heart and chronic kidney disease with heart failure and stage 1 through stage 4 chronic kidney disease, or unspecified chronic kidney disease; N17.9 Acute kidney failure, unspecified; E11.22 Type 2 diabetes mellitus with diabetic chronic kidney disease; Z11.59 Encounter for screening for other viral diseases; K76.1 Chronic passive congestion of liver; N18.3 Chronic kidney disease, stage 3 (moderate); E11.65 Type 2 diabetes mellitus with hyperglycemia; I44.30 Unspecified atrioventricular block; I25.10 Atherosclerotic heart disease of native coronary artery without angina pectoris; R00.1 Bradycardia, unspecified; E78.5 Hyperlipidemia, unspecified; I25.5 Ischemic cardiomyopathy; I44.0 Atrioventricular block, first degree; D72.829 Elevated white blood cell count, unspecified; G47.33 Obstructive sleep apnea (adult) (pediatric); R00.0 Tachycardia, unspecified; I34.0 Nonrheumatic mitral (valve) insufficiency; I25.84 Coronary atherosclerosis due to calcified coronary lesion; Z79.84 Long term (current) use of oral hypoglycemic drugs; Z79.899 Other long term (current) drug therapy; Z87.01 Personal history of pneumonia (recurrent)
CPT/HCPCS: 36415; 71045; 80053; 80061; 81001; 82550; 83036; 83605; 83880; 84145; 84484; 85025; 85379; 85610; 85730; 87040; 92921; 93005; 93306; 93458; 96374; 99291